=== PATIENT | male | born 1950 | race Caucasian/White ===

== ENCOUNTER 2017-07-30 20:02 | Emergency (ER) | payer OTHER ==
[~2017-07-30] VITALS: Ht 182.9 cm; Wt 95.9 kg
[2017-07-30 20:04] VITALS: TEMP 36.3; Ht 182.9 cm; Wt 95.9 kg
[2017-07-30 20:34] VITALS: O2SAT 93
[2017-07-30] MEDS ORDERED: NITROGLYCERIN 0.4 MG SL PER TAB CHARGE SL STA (20:35)
[2017-07-30 20:36] LABS: BASO % 0.3 %; BASO ABS # 0.02 K/uL (0-0.2); EOS % 1.2 %; EOS ABS # 0.09 K/uL (0-0.5); HEMATOCRIT 42.3 % (42-52); HEMOGLOBIN 15.4 g/dL (14.0-18.0); IG# 0.01 K/uL (0.00-0.02); LYMPH % 13.7 %; LYMPH ABS # 1.04 K/uL (1.2-3.4); MEAN CELL VOLUME 83.1 fL (80-100); MEAN CORPUSCULAR HEMOGLOBIN 30.3 pg (25-34); MEAN CORPUSCULAR HGB CONC 36.4 g/dl (32-36); MEAN PLATELET VOLUME 11.4 fL (7.4-10.4); MONO % 5.7 %; MONO ABS # 0.43 K/uL (0.11-0.59); NEUT ABS # 6.02 K/uL (1.4-6.5); PLATELET COUNT 131 K/uL (130-400); RED CELL DISTRIBUTION WIDTH CV 13.3 % (11.5-14.5); RED CELL DISTRIBUTION WIDTH SD 40.1 fL (36.4-46.3); WHITE BLOOD COUNT 7.61 K/uL (4.8-10.8)
--- NOTE | 2017-07-30 20:36 | DIAGNOSTIC IMAGING REPORT ---
CHEST ONE VIEW PORTABLE HISTORY: 66 years-old Male cp acute atypical chest pain COMPARISON: Chest CT 12/10/2007 TECHNIQUE: Portable AP view of the chest FINDINGS: Cardiomediastinal and hilar silhouettes are within normal limits. Mild right hemidiaphragm elevation with loops of colon interposed between the diaphragm and liver. Subsegmental right basilar opacities suggest atelectasis. There is no pneumothorax, pleural effusion, focal airspace consolidation or overt pulmonary edema. Bones of the chest appear grossly intact. IMPRESSION: No acute process. The above report was generated using voice recognition software. It may contain grammatical, syntax or spelling errors. Electronically signed by: Lukas Chandler M.D. 07/30/2017 8:35 PM Dictated Date/Time: 07/30/2017 8:33 PM
[2017-07-30 20:47] LABS: PTT PATIENT 25.7 SECONDS (21.0-31.0)
[2017-07-30 20:58] LABS: POTASSIUM 2.8 mmol/L (3.5-5.1)
[2017-07-30 21:04] LABS: CALCIUM 9.3 mg/dl (8.5-10.1); CREATININE 1.18 mg/dl (0.60-1.40)
[2017-07-30 21:07] LABS: TOTAL PROTEIN 7.8 gm/dl (6.4-8.2)
[2017-07-30] MEDS ORDERED: POTASSIUM CHLORIDE 10 MEQ TABCR PO STA (21:10)
[2017-07-30] MEDS ORDERED: HYDR12.55 PO (21:30)
[2017-07-30] MEDS ORDERED: SIMV20TA2 PO (21:31)
[2017-07-30] MEDS ORDERED: LOSA1TAB38 PO (21:32)
[2017-07-30 21:53] LABS: ALBUMIN 4.2 gm/dl (3.4-5.0)
[2017-07-30 22:19] VITALS: BP 115/74; PULSE 88; O2SAT 97
--- NOTE | 2017-07-30 22:26 | DIAGNOSTIC IMAGING REPORT ---
ABDOMEN AND PELVIS CT WITHOUT CONTRAST CT DOSE: 661.78 mGy.cm HISTORY: Acute generalized abdominal pain status post colonoscopy. Concern for possible pneumoperitoneum. eval for free air TECHNIQUE: Multiaxial CT images of the abdomen and pelvis were performed without contrast. A dose lowering technique was utilized adhering to the principles of ALARA. COMPARISON STUDY: None. FINDINGS: Minimal subsegmental bibasilar atelectasis. No pneumatosis or pneumoperitoneum status post colonoscopy. Imaged inferior cardiac chambers are unremarkable. Evaluation of the solid abdominal organs is limited without the use of IV contrast. Multiple low attenuating lesions of the liver, largest of which measure up to 1.7 cm suggest hepatic cysts. No intrahepatic biliary ductal dilation. Spleen, pancreas and adrenal glands are within normal limits. Multiple gallstones are seen layering within the gallbladder lumen. Prominence of the gallbladder fundus may reflect adenomyomatosis or Phrygian cap. No CT evidence of acute cholecystitis. There are multiple low attenuating lesions of the kidneys bilaterally suggesting renal cysts, largest of which measures 10.1 x 9.7 cm within the inferior pole right kidney. Indeterminate mixed attenuating lesion measuring 2.1 x 1.9 cm involves the superior pole right kidney, image 166 series 3. Soft tissue attenuating 1.4 cm lesion is seen within the interpolar left kidney. Complex cyst with peripheral calcifications involves the inferior pole left kidney. No renal calculi or obstructive uropathy. Prostamegaly. Small fat filled bilateral inguinal hernias. Mild atherosclerosis of the aorta without aneurysm. No bulky adenopathy. Mild nonspecific stranding of the mid mesentery with scattered nonenlarged mesenteric lymph nodes. No bowel obstruction or focal bowel wall thickening. Normal appendix. Small fat filled periumbilical hernia, diastases 2.3 cm. Bones appear unremarkable. IMPRESSION: 1. No acute intra-abdominal or intrapelvic abnormality identified, specifically no evidence of pneumoperitoneum. 2. Cholelithiasis without CT evidence of acute cholecystitis. 3. Multiple bilateral renal cysts with additional complex lesions of the kidneys bilaterally which are indeterminate on this noncontrast study however would favor complex renal cysts. 4. 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 5. Prostamegaly. Electronically signed by: Lukas Chandler M.D. 07/30/2017 10:25 PM Dictated Date/Time: 07/30/2017 10:16 PM
--- NOTE | 2017-07-31 17:11 | EMERGENCY ROOM VISIT NOTE ---
History Report prepared by Cyndi: Alvaro Valadez Under the Supervision of: Dr. Giovanni Carr M.D. First contact with patient: 20:09 Chief Complaint: CHEST PAIN Stated Complaint: STRONG CHEST PAIN- S/P COLONOSCOPY History of Present Illness The patient is a 66 year old male who presents to the Emergency Room with complaints of constant chest pain that began this evening at 1845, 1 hour and 30 minutes ago. The patient states that his pain is localized to the center of the chest, and describes the pain as a "pressure" or "gas bubble." The pain is worsened by laying flat. He has no personal or family history of cardiac disease , but he is on mediation for hypertension. The patient does have some upper abdominal pain as well, but denies any fevers or vomiting. He had a colonoscopy performed today, which he notes he has frequently due to his father having cancer. Source of History: patient Onset: 90 minutes ago Position: chest Quality: pressure, other ("radha bubble") Timing: constant Modifying Factors (Worsening): other (Laying flat) Associated Symptoms: + abdominal pain, No fevers, No vomiting Review of Systems See HPI for pertinent positives & negatives. A total of 10 systems reviewed and were otherwise negative. Past Medical & Surgical Medical Problems: (1) Hemorrhoids (2) Hypertension Surgical Problems: (1) Hx of transurethral resection of prostate Family History FHx: cancer FHx: heart disease Hypertension Social History Smoking Status: Former Smoker Alcohol Use: none Marital Status: Housing Status: lives with family Occupation Status: employed Current/Historical Medications Scheduled Hydrochlorothiazide (Hydrochlorothiazide), 12.5 MG PO DAILY Losartan Potassium (Cozaar), 100 MG PO DAILY Simvastatin (Zocor), 20 MG PO QPM Allergies Coded Allergies: No Known Allergies (Verified , 07/30/17) Physical Exam Vital Signs Date Time Temp Pulse Resp B/P (MAP) Pulse Ox O2 Delivery O2 Flow Rate FiO2 07/30/17 22:19 88 18 115/74 97 Room Air 07/30/17 20:48 94 07/30/17 20:47 97 18 118/80 93 Room Air 07/30/17 20:39 102 18 145/96 93 Room Air 07/30/17 20:34 93 Room Air 07/30/17 20:04 36.3 87 20 162/95 98 Room Air Physical Exam Constitutional: Vital signs reviewed. Eyes: Pupils are equal round reactive to light. Conjunctiva are noninjected. ENT: Pharynx is clear without erythema or exudate. Mucous membranes are moist. Neck supple without meningeal signs. Respiratory: Clear to auscultation bilaterally. Breath sounds are equal bilaterally. Cardiovascular: Regular rate and rhythm. No rubs or gallops. GI: Epigastric tenderness, Soft, no guarding, nondistended. Bowel sounds are present. Musculoskeletal: No peripheral edema. No lower extremity tenderness. Integumentary: No cyanosis. Neurological: The patient is awake and alert. No focal deficits. Psychiatric: Normal affect. Medical Decision & Procedures ER Provider Diagnostic Interpretation: Radiology results as stated below per my review and the radiologist's interpretation: CHEST ONE VIEW PORTABLE HISTORY: 66 years-old Male cp acute atypical chest pain COMPARISON: Chest CT 12/10/2007 TECHNIQUE: Portable AP view of the chest FINDINGS: Cardiomediastinal and hilar silhouettes are within normal limits. Mild right hemidiaphragm elevation with loops of colon interposed between the diaphragm and liver. Subsegmental right basilar opacities suggest atelectasis. There is no pneumothorax, pleural effusion, focal airspace consolidation or overt pulmonary edema. Bones of the chest appear grossly intact. IMPRESSION: No acute process. The above report was generated using voice recognition software. It may contain grammatical, syntax or spelling errors. Electronically signed by: Lukas Chandler M.D. 07/30/2017 8:35 PM Dictated Date/Time: 07/30/2017 8:33 PM ABDOMEN AND PELVIS CT WITHOUT CONTRAST CT DOSE: 661.78 mGy.cm HISTORY: Acute generalized abdominal pain status post colonoscopy. Concern for possible pneumoperitoneum. eval for free air TECHNIQUE: Multiaxial CT images of the abdomen and pelvis were performed without contrast. A dose lowering technique was utilized adhering to the principles of ALARA. COMPARISON STUDY: None. FINDINGS: Minimal subsegmental bibasilar atelectasis. No pneumatosis or pneumoperitoneum status post colonoscopy. Imaged inferior cardiac chambers are unremarkable. Evaluation of the solid abdominal organs is limited without the use of IV contrast. Multiple low attenuating lesions of the liver, largest of which measure up to 1.7 cm suggest hepatic cysts. No intrahepatic biliary ductal dilation. Spleen, pancreas and adrenal glands are within normal limits. Multiple gallstones are seen layering within the gallbladder lumen. Prominence of the gallbladder fundus may reflect adenomyomatosis or Phrygian cap. No CT evidence of acute cholecystitis. There are multiple low attenuating lesions of the kidneys bilaterally suggesting renal cysts, largest of which measures 10.1 x 9.7 cm within the inferior pole right kidney. Indeterminate mixed attenuating lesion measuring 2.1 x 1.9 cm involves the superior pole right kidney, image 166 series 3. Soft tissue attenuating 1.4 cm lesion is seen within the interpolar left kidney. Complex cyst with peripheral calcifications involves the inferior pole left kidney. No renal calculi or obstructive uropathy. Prostamegaly. Small fat filled bilateral inguinal hernias. Mild atherosclerosis of the aorta without aneurysm. No bulky adenopathy. Mild nonspecific stranding of the mid mesentery with scattered nonenlarged mesenteric lymph nodes. No bowel obstruction or focal bowel wall thickening. Normal appendix. Small fat filled periumbilical hernia, diastases 2.3 cm. Bones appear unremarkable. IMPRESSION: 1. No acute intra-abdominal or intrapelvic abnormality identified, specifically no evidence of pneumoperitoneum. 2. Cholelithiasis without CT evidence of acute cholecystitis. 3. Multiple bilateral renal cysts with additional complex lesions of the kidneys bilaterally which are indeterminate on this noncontrast study however would favor complex renal cysts. 4. 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 5. Prostamegaly. Electronically signed by: Lukas Chandler M.D. 07/30/2017 10:25 PM Dictated Date/Time: 07/30/2017 10:16 PM Laboratory Results 07/30/17 20:25 Red Blood Count 5.09, Mean Corpuscular Volume 83.1, Mean Corpuscular Hemoglobin 30.3, Mean Corpuscular Hemoglobin Concent 36.4, Mean Platelet Volume 11.4, Neutrophils (%) (Auto) 79.0, Lymphocytes (%) (Auto) 13.7, Monocytes (%) (Auto) 5.7, Eosinophils (%) (Auto) 1.2, Basophils (%) (Auto) 0.3, Neutrophils # (Auto) 6.02, Lymphocytes # (Auto) 1.04, Monocytes # (Auto) 0.43, Eosinophils # (Auto) 0.09, Basophils # (Auto) 0.02 07/30/17 20:25 Test 07/30/17 20:25 07/30/17 22:15 White Blood Count 7.61 K/uL (4.8-10.8) Red Blood Count 5.09 M/uL (4.7-6.1) Hemoglobin 15.4 g/dL (14.0-18.0) Hematocrit 42.3 % (42-52) Mean Corpuscular Volume 83.1 fL (80-100) Mean Corpuscular Hemoglobin 30.3 pg (25-34) Mean Corpuscular Hemoglobin Concent 36.4 g/dl (32-36) Platelet Count 131 K/uL (130-400) Mean Platelet Volume 11.4 fL (7.4-10.4) Neutrophils (%) (Auto) 79.0 % Lymphocytes (%) (Auto) 13.7 % Monocytes (%) (Auto) 5.7 % Eosinophils (%) (Auto) 1.2 % Basophils (%) (Auto) 0.3 % Neutrophils # (Auto) 6.02 K/uL (1.4-6.5) Lymphocytes # (Auto) 1.04 K/uL (1.2-3.4) Monocytes # (Auto) 0.43 K/uL (0.11-0.59) Eosinophils # (Auto) 0.09 K/uL (0-0.5) Basophils # (Auto) 0.02 K/uL (0-0.2) RDW Standard Deviation 40.1 fL (36.4-46.3) RDW Coefficient of Variation 13.3 % (11.5-14.5) Immature Granulocyte % (Auto) 0.1 % Immature Granulocyte # (Auto) 0.01 K/uL (0.00-0.02) Prothrombin Time 10.4 SECONDS (9.0-12.0) Prothromb Time International Ratio 1.0 (0.9-1.1) Activated Partial Thromboplast Time 25.7 SECONDS (21.0-31.0) Partial Thromboplastin Ratio 1.0 Anion Gap 7.0 mmol/L (3-11) Est Creatinine Clear Calc Drug Dose 76.0 ml/min Estimated GFR () 75.1 Estimated GFR (Non- 64.8 BUN/Creatinine Ratio 14.7 (10-20) Calcium Level 9.3 mg/dl (8.5-10.1) Total Bilirubin 1.3 mg/dl (0.2-1) Direct Bilirubin 0.3 mg/dl (0-0.2) Aspartate Amino Transf (AST/SGOT) 39 U/L (15-37) Alanine Aminotransferase (ALT/SGPT) 52 U/L (12-78) Alkaline Phosphatase 90 U/L (45-117) Total Protein 7.8 gm/dl (6.4-8.2) Albumin 4.2 gm/dl (3.4-5.0) Lipase 107 U/L (73-393) Bedside Troponin I < 0.030 ng/ml (0-0.045) Laboratory results as reviewed by me. Medications Administered Medications (Trade) Dose Ordered Sig/Owen Route Start Time Stop Time Status Last Admin Dose Admin Nitroglycerin (Nitrostat Tab) 0.4 mg NOW STAT SL 07/30/17 20:35 07/30/17 20:36 DC 07/30/17 20:40 0.4 MG Potassium Chloride (Klor-Con M10) 40 meq NOW STAT PO 07/30/17 21:10 07/30/17 21:11 DC 07/30/17 22:19 40 MEQ ECG Per My Interpretation Indication: chest pain Rate (beats per minute): 78 Rhythm: normal sinus Findings: other (J-Point elevation in V2/V3. No BABAK, No PVCs) Comparison ECG Date: 06/30/2010 Change: no significant change ED Course 2012: The patient was evaluated in room B8. A complete history and physical exam was performed. 2033: I checked on the patient. He states that he "burped" and felt a little better. 2034: Ordered Nitroglycerin 0.4 mg SL. 2109: Ordered Potassium Chloride 40 meq PO. 2116: The patient states that the nitroglycerin did seem to help for a short time, then the pain came right back. 2207: I checked on the patient. He has had complete resolution of his symptoms. He states that he kept rocking back and forth until he kept burping and now he feels much better. He will be discharged home when his CT is resulted. Medical Decision This is a 66-year-old male who presents with chest pain. Differential diagnosis includes gas, reflux, unstable angina, GA, pneumothorax, colonic perforation. I did perform a limited focused review of portions of the patient' s old chart on the electronic medical record. The patient has had no recent pertinent visits to this hospital. I did evaluate the patient as noted above. Patient is presenting with chest pain and upper abdominal pain after having a colonoscopy earlier today. He states the pain does feel like gas but also describes it as a pressure-like sensation. Initially did give him a sublingual nitroglycerin but this did not seem to help very much. He stated that it did help slightly but then the pain came back and it was worse. He then stated that he started belching and the pain seemed to subside. IV access was established. The patient was placed on a continuous supplier diversity director. I did order and personally review the patient's 12-lead EKG and chest x-ray as described above. His chest x-ray did not show any signs of free air under the diaphragm. Twelve-lead EKG did not show any acute ischemia. I did order and review the patient's blood work as noted in the electronic medical record. Troponin 2 is negative. I did reassess the patient. He is still having abdominal and upper chest pain. I was concerned about the possibility of bowel perforation from the colonoscopy. After discussion with the patient I did order a CT of the abdomen and pelvis. I did review the images myself as well as the radiology report as described above. No evidence of free air was noted. I did reassess the patient. He now states that his pain is completely gone. He stated that he started trying a rock himself back in forward and this helped him burp quite a bit and subsequently his chest pain resolved. It appears that his symptoms were secondary to the insufflation of gas into his GI system. The patient was advised to follow-up with his doctor and discharged in good condition. He was told to return for any worsening symptoms or any new symptoms as outlined below. Medication Reconcilliation Current Medication List: was personally reviewed by me Blood Pressure Screening Patient's blood pressure: Elevated blood pressure Impression Primary Impression: Acute chest pain Scribe Attestation The scribe's documentation has been prepared under my direct and personally reviewed by me in its entirety. I confirm that the note above accurately reflects all work, treatment, procedures, and medical decision making performed by me. Departure Information Referrals Tova Nguyen D.O. (PCP) Patient Instructions My [facility]
== END 2017-07-30 20:40 | disposition home or self-care (01) ==
LOC: C.EDB 20:03
DX: R07.9 Chest pain, unspecified (principal); R10.10 Upper abdominal pain, unspecified; I10 Essential (primary) hypertension; Z82.49 Family history of ischemic heart disease and other diseases of the circulatory system; Z87.891 Personal history of nicotine dependence; Z79.899 Other long term (current) drug therapy

== ENCOUNTER 2023-12-03 13:58 | Inpatient (IN) ==
--- NOTE | 2023-12-03 14:32 | Emergency Department Note ---
History of Present Illness General Chief complaint: Abdominal Pain Stated complaint: ABD PAIN, VOMITING Time Seen by Provider: 12/03/23 14:09 History of Present Illness Maximum Pain Intensity: 8 Patient is a 72-year-old male with past medical history significant for hypertension and dyslipidemia who presents to the emergency department for evaluation of upper abdominal pain and nausea and vomiting. He states his symptoms started acutely last evening. Pain started around 1900. He had had a sloppy An[place] for dinner. He states the pain is in his epigastric and bilateral upper abdomen. He started vomiting around 2200. He estimates he is thrown up about 6 times since. He states the pain was fairly constant overnight, although he admits that it seems to have improved since arrival in the emergency department. He last vomited on the drive in, when he tried to sip on some water. He rated his pain an 8/10 in triage. He does note some mild midsternal chest discomfort that is worse when he tries to lay flat. He also feels a little bit short of breath. He had episodes of dizziness, weakness, sweats and chills, mainly associated with his episodes of vomiting. He states that his abdomen feels bloated and distended. He denies any diarrhea. He states that other family members ate the same foods as him recently and are not ill. He has municipal water as a source at home, but states that he uses bottled water exclusively. No foreign travel or other food concerns. Of note, patient is on day 5 of a 10-day course of doxycycline for possible tick bite. He is status post cholecystectomy, and partial right nephrectomy. Home Medications Medication Instructions Recorded Confirmed Type losartan 100 mg tablet (Cozaar) 100 mg PO HS 10/01/19 12/03/23 History amlodipine 5 mg tablet 5 mg PO QAM 12/03/23 12/03/23 History atorvastatin 20 mg tablet 20 mg PO HS 12/03/23 12/03/23 History doxycycline hyclate 100 mg tablet 100 mg PO AMHS 12/03/23 12/03/23 History Allergies Allergy/AdvReac Type Severity Reaction Status Date / Time pollen extracts Allergy Intermediate Congested Verified 12/03/23 19:33 No Known Drug Allergies Allergy Unknown Verified 12/03/23 19:33 Past Med/Surg History Problem List (Updated 12/03/23 @ 19:23 by Kelley Chung) Partial small bowel obstruction (Acute) Medical History 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), 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 Hemorrhoids Hypertension History of kidney cancer Surgical History History of partial nephrectomy History of cholecystectomy Hx of transurethral resection of prostate History of hernia repair H/O hemorrhoidectomy Family History Father Cancer Hypertension Other Allergies Hearing loss No family history of adverse response to anesthesia No family history of bleeding disorder Social History Smoking Status: Never smoker Age Quit Using Tobacco: 26; packs per day: 4; Hx Alcohol Use: No Hx Substance Use: No Preferred Language: Azeri Feels Safe at Home: Yes Review of Systems A total of 10 systems reviewed and were otherwise negative Physical Exam Vital Signs Vital Signs - 24 hr 12/03/23 14:00 12/03/23 14:44 12/03/23 14:45 Temperature 36.5 C Temperature Source Oral Pulse Rate 72 89 Pulse Rate [Apical] 89 Pulse Rate from SpO2 Sensor Respiratory Rate 18 23 Respiratory Effort / Characteristics Non-Labored Spontaneous Non-Labored Respiratory Depth Normal Normal Respiratory Pattern Regular Regular Blood Pressure 153/91 H Blood Pressure [Right Arm] 107/86 Blood Pressure Mean 111 Blood Pressure Mean [Right Arm] 93 Blood Pressure Position Sitting Pulse Oximetry 96 95 Oxygen Delivery Method Room Air Room Air Sepsis Recent Fever Within 48 Hours No Sepsis New/Unexplained Change in Mental Status No Sepsis Action Taken by Nursing No Action Required 12/03/23 17:21 12/03/23 18:00 12/03/23 19:28 Temperature Temperature Source Pulse Rate 124 H 91 H 112 H Pulse Rate [Apical] Pulse Rate from SpO2 Sensor 92 H Respiratory Rate 12 20 Respiratory Effort / Characteristics Respiratory Depth Respiratory Pattern Blood Pressure 146/103 H 131/94 Blood Pressure [Right Arm] Blood Pressure Mean 117 106 Blood Pressure Mean [Right Arm] Blood Pressure Position Pulse Oximetry 93 93 Oxygen Delivery Method Room Air Room Air Sepsis Recent Fever Within 48 Hours Sepsis New/Unexplained Change in Mental Status Sepsis Action Taken by Nursing CONSTITUTIONAL: Well-appearing 72-year-old male in no acute distress laying on the gurney. EYES: Pupils equal, round, reactive to light and accommodation. EOMs intact without nystagmus. Sclera are anicteric. CARDIOVASCULAR: Regular rate and rhythm. Peripheral pulses easy to palpable. RESPIRATORY: Breath sounds equal and clear to auscultation. GI: Bowel sounds are present. Abdomen is soft, mildly distended. Midline ventral hernia noted superior to the umbilicus. Nontender to percussion, but tender to palpation in the left upper quadrant, epigastric, the right upper quadrant and the right lower quadrant. No guarding or rebound. MUSCULOSKELETAL: Full range of motion of extremities x 4 with good strength. No cyanosis, edema, joint tenderness or swelling. No deformity. Course Course The patient was seen and assessed as above. External medical records were reviewed. He presents to the emergency department for evaluation of acute upper abdominal pain, nausea and vomiting that started last evening. IV lock was initiated and laboratory studies were collected. He was hydrated with normal saline solution and treated with Pepcid and Zofran IV. EKG, chest x-ray and CT scan of the abdomen and pelvis were ordered. Patient was later reassessed prior to CT and was complaining of increased pain. He was given morphine 4 mg IV. Diagnostics, as interpreted by me: Laboratory studies: Normal white count 10,400. No anemia. No electrolyte imbalance or LILY. Mildly elevated total bilirubin at 1.8, remainder transaminases are normal. Lipase is not indicative of acute pancreatitis. Troponin is negative x 1 with symptoms times almost 24 hours. Urine microscopy is not concerning for infection. ECG: Sinus rhythm with frequent PVCs, 91 bpm. PVCs are new compared to prior. No acute ischemic changes. No other significant change. Cardiac Monitoring: Cardiac monitoring: An order was placed for continuous cardiac monitoring. The monitor shows a sinus tachycardia in the [id number] per my interpretation. Imaging studies: Chest x-ray clear. No consolidation or infiltrate. CT scan of the abdomen and pelvis with IV contrast concerning for low-grade small bowel obstruction versus ileus, noting dilated small bowel loops of the upper abdomen without distinct transition point. Patient reviewed with attending physician, Dr. Amador. Maintenance fluids ordered at 250 cc/h. Lactic acid was ordered. Patient was reassessed and all laboratory and diagnostic imaging studies were reviewed with him. The patient reported that he declined to the morphine when it was initially ordered, but was amenable to it on reassessment and it was given, although later than the order. Options of care were discussed with the patient that. I will note that at this time, the patient was noted to be persistently tachycardic, with a heart rate in the 110s. Observation/admission was discussed, versus a trial of management at home, but after review of the information above and other included data, I feel the patient would be better served by inpatient care. He was in agreement. Patient was discussed with Dr. Gonzalez with the [facility] service. Please refer to his H&P and admission orders for further information. Differential diagnosis: GERD, gastritis, esophagitis, peptic ulcer disease, acute pancreatitis, mass or malignancy, bowel obstruction, diverticulitis, ACS, aortic dissection, among others. Administered Medications Sodium Chloride (Nss) 1,000 mls @ 250 mls/hr IV .Q4H ANJELICA Stop: 01/02/24 19:29 Last Admin: 12/03/23 19:58 Dose: 250 mls/hr Documented By: CARLENE Discontinued Medications Sodium Chloride (Nss) 1,000 mls @ 999 mls/hr IV .Q1H1M ANJELICA Stop: 12/03/23 15:24 Last Infusion: 12/03/23 19:18 Dose: Infused Documented By: Admin: 12/03/23 14:51 Dose: 999 mls/hr Documented By: JIMBO Famotidine (Pepcid 20mg Iv Push) 20 mg in 5 mls @ 2.5 mls/min IV NOW STA Stop: 12/03/23 14:24 Last Admin: 12/03/23 14:51 Dose: 2.5 mls/min Documented By: JIMBO Ioversol (Optiray 320 100ml) 94 ml IV ONCE ONE Stop: 12/03/23 17:15 Last Admin: 12/03/23 17:15 Dose: 94 ml Documented By: SANDIE Morphine Sulfate (Morphine Sulfate 4 Mg/Ml 1 Ml Carp\Vial) 4 mg IV NOW STA Stop: 12/03/23 16:47 Last Admin: 12/03/23 19:14 Dose: 4 mg Documented By: CARLNEE Morphine Sulfate (Morphine Sulfate 4 Mg/Ml 1 Ml Carp\Vial) Confirm Administered Dose 4 mg .ROUTE .STK-MED ONE Stop: 12/03/23 19:12 Last Admin: 12/03/23 19:12 Dose: Not Given Documented By: CARLENE Ondansetron HCl (Ondansetron Inj 2 Mg/Ml 2 Ml Vial) 4 mg IV NOW STA Stop: 12/03/23 14:24 Last Admin: 12/03/23 14:51 Dose: 4 mg Documented By: JIMBO Medical Decision Making Differential Diagnosis See ED Course. Medical Records Attestation: I reviewed the patient's medical records. Home Medications Current Medication List: was personally reviewed by me Laboratory Data Attestation: I reviewed the patient's lab results. 12/03/23 14:43 12/03/23 14:43 Lab Results 12/03/23 12/03/23 Range/Units 14:43 17:00 WBC 10.41 (4.8-10.8) K/ul RBC 5.77 (4.70-6.10) M/uL Hgb 16.3 (14.0-18.0) g/dl Hct 48.9 (42.0-52.0) % MCV 84.7 (80.0-100.0) fL MCH 28.2 (25.0-34.0) pg MCHC 33.3 (32.0-36.0) g/dL RDW Std Deviation 42.4 (36.4-46.3) fL RDW Coeff of Donita 13.6 (11.5-14.5) % Plt Count 149 (130-400) K/uL MPV 10.5 (9.4-12.4) fL Immature Gran % (Auto) 0.3 % Neut % (Auto) 86.8 % Lymph % (Auto) 6.2 % Dillon % (Auto) 6.0 % Eos % (Auto) 0.4 % Baso % (Auto) 0.3 % Neut # (Auto) 9.04 H (1.40-6.50) K/uL Lymph # (Auto) 0.65 L (1.20-3.40) K/uL Dillon # (Auto) 0.62 H (0.11-0.59) K/uL Eos # (Auto) 0.04 (0.00-0.50) K/uL Baso # (Auto) 0.03 (0.00-0.20) K/uL Immature Gran # (Auto) 0.03 (0.01-0.20) K/uL Sodium 141 (136-145) mmol/L Potassium 3.5 (3.5-5.1) mmol/L Chloride 106 (98-107) mmol/L Carbon Dioxide 26 (21-32) mmol/L Anion Gap 9 (3-11) BUN 22 (6-23) mg/dl Creatinine 1.05 (0.6-1.4) mg/dl Est Cr Clr Drug Dosing 75.9 ml/min Est GFR ( Amer) 83.0 ml/min Est GFR (Non-Af Amer) 71.6 ml/min BUN/Creatinine Ratio 21.0 H (10-20) Glucose 112 H (70-99(Fasting)) mg/dl Calcium 10.0 (8.6-10.3) mg/dl Total Bilirubin 1.8 H (0.2-1.0) mg/dl AST 21 (13-39) U/L ALT 15 (7-52) U/L Alkaline Phosphatase 89 (34-104) U/L Troponin I High Sens 4.6 (0-20) pg/ml Total Protein 7.4 (6.0-8.3) gm/dl Albumin 4.8 (3.4-5.0) gm/dl Globulin 2.6 (2.5-4.0) gm/dl Albumin/Globulin Ratio 1.8 (0.9-2) Lipase 35 (11-82) U/L Urine Color Dark Yellow Urine Appearance Clear (Clear) Urine pH 6.0 (4.5-7.5) Ur Specific [place] 1.024 (1.000-1.030) Urine Protein 1+ H (Negative) Urine Glucose (UA) Negative (Negative) Urine Ketones 1+ H (Negative) Urine Blood Negative (Negative) Urine Nitrite Negative (Negative) Urine Bilirubin Negative (Negative) Urine Urobilinogen Negative (Negative) Ur Leukocyte Esterase Negative (Negative) Urine WBC (Auto) 0-5 (0-5) /hpf Urine RBC (Auto) 0-2 (0-2) /hpf U Hyaline Cast (Auto) 3-5 H (0-2) /lpf U Epithel Cells (Auto) 0-2 (0-2) /hpf Urine Bacteria (Auto) None Seen (None Seen) Urine Mucus Present A (None Prsent) Imaging Data Attestation: I personally reviewed and interpreted this imaging study as follows: Radiologist's Impression: Abdomen/Pelvis CT 12/03/23 14:23 CT abd pelvis IV con only CLINICAL HISTORY: UPPER ABD PAIN, N/V TECHNIQUE: Helical axial images of the abdomen and pelvis were obtained and displayed. Automated dose lowering techniques and/or adjustment according to patient size were utilized for this exam. This exam was performed with intravenous contrast. CT DOSE: 1455.27 mGy.cm COMPARISON: Comparison is made to CT abdomen pelvis 12/09/2022 FINDINGS: Lower chest: Bibasilar atelectasis versus scarring is seen. Liver: Hepatic cysts are seen. Gallbladder and biliary tree: Patient is status post cholecystectomy. No intra- or extrahepatic biliary ductal dilation. Pancreas: Unremarkable, no focal lesions. Spleen: Unremarkable. Adrenals: Unremarkable. Kidneys and ureters: Renal cysts are seen. Postsurgical changes of partial nephrectomy are seen on the right. Bladder: Limited evaluation due to underdistention. Reproductive organs: Unremarkable. Bowel: Diverticulosis is seen without evidence of diverticulitis. Multiple dilated loops of small bowel measure up to 36 m. No sharp transition point is seen. Lymph nodes Retroperitoneal: Unremarkable. Pelvic: Unremarkable. Mesenteric: Unremarkable. Peritoneum: A small amount of abdominal and pelvic fluid is seen. Vessels: Unremarkable. Abdominal wall: Bilateral fat-containing inguinal hernias are seen. Bones: Degenerative changes in the visualized spine. IMPRESSION: 1. Multiple loops of dilated small bowel without sharp transition point. This may represent a low-grade obstruction or ileus. Postsurgical changes of partial nephrectomy of the right kidney. 2. Additional findings as above. ACT 112: Negative or not required by law. Electronically signed by: Sergo Bustos M.D. 12/03/2023 6:36 PM Chest X-Ray 12/03/23 14:23 XR chest 1V portable HISTORY: UPPER ABD PAIN COMPARISON: Chest 07/30/2017. FINDINGS: There are low lung volumes with a few bibasilar linear densities suggesting subsegmental atelectasis. Otherwise, the lungs are clear. No evidence for pulmonary edema. The heart is normal in size. No acute fractures. IMPRESSION: No significant change compared to the prior study. No acute process. ACT 112: Negative or not required by law. Electronically signed by: Kilo Saleem M.D. 12/03/2023 2:40 PM MDM Narrative See ED Course. Impression & Plan Partial small bowel obstruction Discharge Plan Visit Data Chief Complaint: Abdominal Pain Stated Complaint: ABD PAIN, VOMITING ED Provider: Sunday Amador ED Midlevel Provider: Kelley Chung Discharge Problem: Partial small bowel obstruction Patient Disposition: Being Evaluated by Hospitalist Forms Stand Alone Forms: [facility] Prescriptions Prescriptions: No Action losartan [Cozaar] 100 mg tablet 100 mg PO HS atorvastatin 20 mg Tablet 20 mg PO HS amlodipine 5 mg Tablet 5 mg PO QAM doxycycline hyclate 100 mg Tablet 100 mg PO AMHS Referrals Referrals: Tova Nguyen DO [Primary Care Provider] -
--- NOTE | 2023-12-03 14:41 | XRay Report ---
XR chest 1V portable HISTORY: UPPER ABD PAIN COMPARISON: Chest 07/30/2017. FINDINGS: There are low lung volumes with a few bibasilar linear densities suggesting subsegmental at electasis. Otherwise, the lungs are clear. No evidence for pulmonary edema. The heart is normal in si ze. No acute fractures. IMPRESSION: No significant change compared to the prior study. No acute process. ACT 112: Negative or not required by law. Electronically signed by: Kilo Saleem M.D. 12/03/2023 2:40 PM
[2023-12-03] MEDS: ONDANSETRON INJ 2 MG/ML 2 ML VIAL IV STA (14:51)
[2023-12-03] MEDS: FAMOTIDINE 20MG IV PUSH 20 MG/5 ML SYR IV STA (14:51)
[2023-12-03] MEDS: SODIUM CHLORIDE 0.9% 1,000 ML IV SCH ×2 (14:51→19:58)
[2023-12-03 15:04] LABS: Basophils # (auto) 0.03 K/uL (0.00-0.20); Basophils % (auto) 0.3 %; Eosinophils # (auto) 0.04 K/uL (0.00-0.50); Eosinophils % (auto) 0.4 %; Hematocrit (blood only) 48.9 % (42.0-52.0); Hemoglobin 16.3 g/dl (14.0-18.0); Immature Granulocytes # (auto) 0.03 K/uL (0.01-0.20); Immature Granulocytes % (auto) 0.3 %; Lymphocytes # (auto) 0.65 K/uL (1.20-3.40); Lymphocytes % (auto) 6.2 %; Mean Corpuscular Hemoglobin 28.2 pg (25.0-34.0); Mean Corpuscular Hgb Conc 33.3 g/dL (32.0-36.0); Mean Corpuscular Volume 84.7 fL (80.0-100.0); Mean Platelet Volume 10.5 fL (9.4-12.4); Monocytes # (auto) 0.62 K/uL (0.11-0.59); Neutrophils # (auto) 9.04 K/uL (1.40-6.50); Neutrophils % (auto) 86.8 %; Platelet Count 149 K/uL (130-400); RDW Coefficient of Variation 13.6 % (11.5-14.5); RDW Standard Deviation 42.4 fL (36.4-46.3); Red Blood Count 5.77 M/uL (4.70-6.10); White Blood Count 10.41 K/ul (4.8-10.8)
[2023-12-03 15:19] LABS: Albumin Globulin Ratio 1.8 (0.9-2); Albumin Level 4.8 gm/dl (3.4-5.0); Bilirubin,Total 1.8 mg/dl (0.2-1.0); Creatinine Clr Calc Pharmacy 75.9 ml/min; Est GFR (Non-African American) 71.6 ml/min; Globulin 2.6 gm/dl (2.5-4.0); Potassium 3.5 mmol/L (3.5-5.1); Total Protein 7.4 gm/dl (6.0-8.3)
[2023-12-03 15:25] LABS: Troponin I High Sensitivity 4.6 pg/ml (0-20)
--- NOTE | 2023-12-03 15:30 | Electrocardiogram Report ---
Test Reason : Blood Pressure : */* mmHG Vent. Rate : 91 BPM Atrial Rate : 91 BPM P-R Int : 188 ms QRS Dur : 100 ms QT Int : 372 ms P-R-T Axes : 108 15 128 degrees QTcB Int : 457 ms Sinus rhythm with frequent Premature ventricular complexes Low voltage QRS Nonspecific T wave abnormality Abnormal ECG When compared with ECG of 30-Jul-2017 20:08, Premature ventricular complexes are now Present Nonspecific T wave abnormality now evident in Lateral leads Confirmed by Jose Cartwright ([id number]) on 12/03/2023 3:30:32 PM Referred By: REFERRED SELF Confirmed By: Jose Cartwright
[2023-12-03] MEDS: OPTIRAY 320 100ml IV ONE (17:15)
--- NOTE | 2023-12-03 17:35 | Emergency Department Note ---
ED Visit Note I was consulted in regards to the patient's presentation and plan of care by the Advanced Practice Provider. I engaged in a detailed/meaningful discussion with the Advanced Practice Provider in regards to this patient's workup and plan of care. I performed a substantiative portion of the medical decision making following discussion with the Advanced Practice Provider. Please see the Advanced Practice Provider's separate documentation for full details of the patient's visit. I agree with the assessment and plan of Vicki Chung PA-C. Sunday Amador, DO Emergency Medicine .
[2023-12-03 17:47] LABS: Appearance Urine Clear (Clear); Bacteria Urine Automated None Seen (None Seen); Bilirubin Urine Negative (Negative); Blood Urine Negative (Negative); Color Urine Dark Yellow; Epithelial Cell Urine Auto 0-2 /hpf (0-2); Glucose Urine UA Negative (Negative); Ketones Urine 1+ (Negative); Leukocyte Esterase Urine Negative (Negative); Mucus Urine Present (None Prsent); Nitrite Urine Negative (Negative); Protein Urine 1+ (Negative); RBC Urine Automated 0-2 /hpf (0-2); Specific Gravity Urine 1.024 (1.000-1.030); Urobilinogen Urine Negative (Negative); WBC Urine Automated 0-5 /hpf (0-5)
[2023-12-03] MEDS: MoRPHine SULFATE 4 MG/ML 1 ML CARP\\VIAL IV STA (17:52)
--- NOTE | 2023-12-03 18:38 | CT Scan Report ---
CT abd pelvis IV con only CLINICAL HISTORY: UPPER ABD PAIN, N/V TECHNIQUE: Helical axial images of the abdomen and pelvis were obtained and displayed. Automated dose lowering techniques and/or adjustment according to patient size were utilized for this exam. This e xam was performed with intravenous contrast. CT DOSE: 1455.27 mGy.cm COMPARISON: Comparison is made to CT abdomen pelvis 12/09/2022 FINDINGS: Lower chest: Bibasilar atelectasis versus scarring is seen. Liver: Hepatic cysts are seen. Gallbladder and biliary tree: Patient is status post cholecystectomy. No intra- or extrahepatic bilia ry ductal dilation. Pancreas: Unremarkable, no focal lesions. Spleen: Unremarkable. Adrenals: Unremarkable. Kidneys and ureters: Renal cysts are seen. Postsurgical changes of partial nephrectomy are seen on th e right. Bladder: Limited evaluation due to underdistention. Reproductive organs: Unremarkable. Bowel: Diverticulosis is seen without evidence of diverticulitis. Multiple dilated loops of small bow el measure up to 36 m. No sharp transition point is seen. Lymph nodes Retroperitoneal: Unremarkable. Pelvic: Unremarkable. Mesenteric: Unremarkable. Peritoneum: A small amount of abdominal and pelvic fluid is seen. Vessels: Unremarkable. Abdominal wall: Bilateral fat-containing inguinal hernias are seen. Bones: Degenerative changes in the visualized spine. IMPRESSION: 1. Multiple loops of dilated small bowel without sharp transition point. This may represent a low-gr debra obstruction or ileus. Postsurgical changes of partial nephrectomy of the right kidney. 2. Additional findings as above. ACT 112: Negative or not required by law. Electronically signed by: Sergo Bustos M.D. 12/03/2023 6:36 PM
[2023-12-03] MEDS: MoRPHine SULFATE 4 MG/ML 1 ML CARP\\VIAL ONE (19:12)
--- NOTE | 2023-12-03 21:25 | History & Physical Report ---
Date of Service December 03, 2023 Assessment & Plan (1) Partial small bowel obstruction: Plan: 72-year-old male with past medical history significant for hyperlipidemia, hypertension, right renal cell carcinoma status post partial nephrectomy, history of prostate cancer, BPH, Peyronie's disease, anxiety presents with abdominal pain and found to have small bowel obstruction. Patient states since 7 PM last night he has abdominal pain. Pain located in upper abdomen radiating to the left lower quadrant. Whole last night he had pain but since morning the pain is coming and going. Pain is severe in nature. Associated with nausea and several emesis. No blood in the vomiting. Last bowel movement was today morning. Denies any headache. Has chronic runny nose. No sore throat. No cough. No difficulty swallowing. Complains of dry mouth. Currently resting comfortably and hemodynamically stable.Recently had a tick bite and on doxycycline. Partial small bowel obstruction Presented with abdominal pain CT scan showing low-grade obstruction or ileus No history of bowel obstruction in the past N.p.o., IV fluids, IV pain meds as needed IV antiemetics as needed If worsening will place him on NG tube KUB in a.m. Surgery consult in a.m. for further recommendations History of hypertension On amlodipine and losartan Will monitor Hyperlipidemia On statin History of BPH Status post TURP History of prostate cancer Diagnosed during TURP Currently under active surveillance History of right renal cell carcinoma Status post partial nephrectomy Recent tick bite Doxycycline DVT prophylaxis Lovenox Disposition Medical floor Full code. History of Present Illness Chief Complaint: Small bowel obstruction Primary Care Provider: Tova Nguyen DO 72-year-old male with past medical history significant for hyperlipidemia, hypertension, right renal cell carcinoma status post partial nephrectomy, history of prostate cancer, BPH, Peyronie's disease, anxiety presents with abdominal pain and found to have small bowel obstruction. Patient states since 7 PM last night he has abdominal pain. Pain located in upper abdomen radiating to the left lower quadrant. Whole last night he had pain but since morning the pain is coming and going. Pain is severe in nature. Associated with nausea and several emesis. No blood in the vomiting. Last bowel movement was today morning. Denies any headache. Has chronic runny nose. No sore throat. No cough. No difficulty swallowing. Complains of dry mouth. Currently resting comfortably and hemodynamically stable.Recently had a tick bite and on doxycycline. Past medical history. As mentioned above Past surgical history. Colonoscopy. Excision of the subcutaneous tumor in the back cystoscopy. Laparoscopic cholecystectomy. Right partial nephrectomy. Removal of hydrocele. TURP. Tonsillectomy. Repair of inguinal hernia. Umbi lical hernia repair. Social history. . Quit smoking 1975. Smoked 3 packs a day for 7 years. No alcohol use. No drug use. Family history. Father had colon cancer age 74. Mother had bone cancer of leg. Brother has thyroid disorder. Allergies Allergy/AdvReac Type Severity Reaction Status Date / Time pollen extracts Allergy Intermediate Congested Verified 12/03/23 19:33 No Known Drug Allergies Allergy Unknown Verified 12/03/23 19:33 Home Medications Medication Instructions Recorded Confirmed Type losartan 100 mg tablet (Cozaar) 100 mg PO HS 10/01/19 12/03/23 History amlodipine 5 mg tablet 5 mg PO QAM 12/03/23 12/03/23 History atorvastatin 20 mg tablet 20 mg PO HS 12/03/23 12/03/23 History doxycycline hyclate 100 mg tablet 100 mg PO AMHS 12/03/23 12/03/23 History Past Med/Surg History Problem List Partial small bowel obstruction (Acute) Medical History 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), 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 Hemorrhoids Hypertension History of kidney cancer Surgical History History of partial nephrectomy History of cholecystectomy Hx of transurethral resection of prostate History of hernia repair H/O hemorrhoidectomy Family History Father Cancer Hypertension Other Allergies Hearing loss No family history of adverse response to anesthesia No family history of bleeding disorder Social History Smoking Status: Former smoker Age Quit Using Tobacco: 26; packs per day: 4; Hx Alcohol Use: No Hx Substance Use: No Preferred Language: Swedish Communication Ability: Effective Insurance Attorney Required: No Beliefs That Will Affect Care: None Current Living Situation: Spouse Feels Safe at Home: Yes Safety Concerns: Feels Safe At This Time Assistive Devices: Glasses Review of Systems Review of Systems: All systems reviewed & are unremarkable except as noted in HPI & below Physical Exam Physical Exam: General- Not in distress. Head- atraumatic Eyes- PERRL. ENT- oropharynx clear Neck- supple, no JVD. Lungs- clear to auscultation no wheezing or crackles Heart- regular rate and rhythm; no murmur, no gallop. Abdomen- very sluggish l bowel sounds, soft, diffuse discomfort, no distension. Extremities- no pretibial edema, no erythema seen Neuro- alert, oriented PERRL, EOMI; no facial palsy; no dysarthria; moves extremities Results & Data Results & Data Vital Signs (Past 12 Hours) Vital Signs Temp Pulse Pulse Resp BP BP Pulse Ox 12/03/23 19:28 112 H 12/03/23 18:00 91 H 20 131/94 93 12/03/23 17:21 124 H 12 146/103 H 93 12/03/23 14:45 89 23 107/86 95 12/03/23 14:44 89 12/03/23 14:00 36.5 C 72 18 153/91 H 96 O2 Del Method 12/03/23 19:28 12/03/23 18:00 Room Air 12/03/23 17:21 Room Air 12/03/23 14:45 Room Air 12/03/23 14:44 12/03/23 14:00 Room Air Diagnostic Findings Laboratory Results WBC 10.41 K/ul (4.8-10.8) 12/03/23 14:43 RBC 5.77 M/uL (4.70-6.10) 12/03/23 14:43 Hgb 16.3 g/dl (14.0-18.0) 12/03/23 14:43 Hct 48.9 % (42.0-52.0) 12/03/23 14:43 MCV 84.7 fL (80.0-100.0) 12/03/23 14:43 MCH 28.2 pg (25.0-34.0) 12/03/23 14:43 MCHC 33.3 g/dL (32.0-36.0) 12/03/23 14:43 RDW Std Deviation 42.4 fL (36.4-46.3) 12/03/23 14:43 RDW Coeff of Donita 13.6 % (11.5-14.5) 12/03/23 14:43 Plt Count 149 K/uL (130-400) 12/03/23 14:43 MPV 10.5 fL (9.4-12.4) 12/03/23 14:43 Immature Gran % (Auto) 0.3 % 12/03/23 14:43 Neut % (Auto) 86.8 % 12/03/23 14:43 Lymph % (Auto) 6.2 % 12/03/23 14:43 [place] % (Auto) 6.0 % 12/03/23 14:43 Eos % (Auto) 0.4 % 12/03/23 14:43 Baso % (Auto) 0.3 % 12/03/23 14:43 Neut # (Auto) 9.04 K/uL (1.40-6.50) H 12/03/23 14:43 Lymph # (Auto) 0.65 K/uL (1.20-3.40) L 12/03/23 14:43 [place] # (Auto) 0.62 K/uL (0.11-0.59) H 12/03/23 14:43 Eos # (Auto) 0.04 K/uL (0.00-0.50) 12/03/23 14:43 Baso # (Auto) 0.03 K/uL (0.00-0.20) 12/03/23 14:43 Immature Gran # (Auto) 0.03 K/uL (0.01-0.20) 12/03/23 14:43 Sodium 141 mmol/L (136-145) 12/03/23 14:43 Potassium 3.5 mmol/L (3.5-5.1) 12/03/23 14:43 Chloride 106 mmol/L (98-107) 12/03/23 14:43 Carbon Dioxide 26 mmol/L (21-32) 12/03/23 14:43 Anion Gap 9 (3-11) 12/03/23 14:43 BUN 22 mg/dl (6-23) 12/03/23 14:43 Creatinine 1.05 mg/dl (0.6-1.4) 12/03/23 14:43 Est Cr Clr Drug Dosing 75.9 ml/min 12/03/23 14:43 Est GFR ( Amer) 83.0 ml/min 12/03/23 14:43 Est GFR (Non-Af Amer) 71.6 ml/min 12/03/23 14:43 BUN/Creatinine Ratio 21.0 (10-20) H 12/03/23 14:43 Glucose 112 mg/dl (70-99(Fasting)) H 12/03/23 14:43 Lactate 0.9 mmol/L (0.4-2.0) 12/03/23 20:21 Calcium 10.0 mg/dl (8.6-10.3) 12/03/23 14:43 Total Bilirubin 1.8 mg/dl (0.2-1.0) H 12/03/23 14:43 AST 21 U/L (13-39) 12/03/23 14:43 ALT 15 U/L (7-52) 12/03/23 14:43 Alkaline Phosphatase 89 U/L (34-104) 12/03/23 14:43 Troponin I High Sens 4.6 pg/ml (0-20) 12/03/23 14:43 Total Protein 7.4 gm/dl (6.0-8.3) 12/03/23 14:43 Albumin 4.8 gm/dl (3.4-5.0) 12/03/23 14:43 Globulin 2.6 gm/dl (2.5-4.0) 12/03/23 14:43 Albumin/Globulin Ratio 1.8 (0.9-2) 12/03/23 14:43 Lipase 35 U/L (11-82) 12/03/23 14:43 Urine Color Dark Yellow 12/03/23 17:00 Urine Appearance Clear (Clear) 12/03/23 17:00 Urine pH 6.0 (4.5-7.5) 12/03/23 17:00 Ur Specific [place] 1.024 (1.000-1.030) 12/03/23 17:00 Urine Protein 1+ (Negative) H 12/03/23 17:00 Urine Glucose (UA) Negative (Negative) 12/03/23 17:00 Urine Ketones 1+ (Negative) H 12/03/23 17:00 Urine Blood Negative (Negative) 12/03/23 17:00 Urine Nitrite Negative (Negative) 12/03/23 17:00 Urine Bilirubin Negative (Negative) 12/03/23 17:00 Urine Urobilinogen Negative (Negative) 12/03/23 17:00 Ur Leukocyte Esterase Negative (Negative) 12/03/23 17:00 Urine WBC (Auto) 0-5 /hpf (0-5) 12/03/23 17:00 Urine RBC (Auto) 0-2 /hpf (0-2) 12/03/23 17:00 U Hyaline Cast (Auto) 3-5 /lpf (0-2) H 12/03/23 17:00 U Epithel Cells (Auto) 0-2 /hpf (0-2) 12/03/23 17:00 Urine Bacteria (Auto) None Seen (None Seen) 12/03/23 17:00 Urine Mucus Present (None Prsent) A 12/03/23 17:00 Impressions Abdomen/Pelvis CT 12/03/23 14:23 CT abd pelvis IV con only CLINICAL HISTORY: UPPER ABD PAIN, N/V TECHNIQUE: Helical axial images of the abdomen and pelvis were obtained and displayed. Automated dose lowering techniques and/or adjustment according to patient size were utilized for this exam. This exam was performed with intravenous contrast. CT DOSE: 1455.27 mGy.cm COMPARISON: Comparison is made to CT abdomen pelvis 12/09/2022 FINDINGS: Lower chest: Bibasilar atelectasis versus scarring is seen. Liver: Hepatic cysts are seen. Gallbladder and biliary tree: Patient is status post cholecystectomy. No intra- or extrahepatic biliary ductal dilation. Pancreas: Unremarkable, no focal lesions. Spleen: Unremarkable. Adrenals: Unremarkable. Kidneys and ureters: Renal cysts are seen. Postsurgical changes of partial nephrectomy are seen on the right. Bladder: Limited evaluation due to underdistention. Reproductive organs: Unremarkable. Bowel: Diverticulosis is seen without evidence of diverticulitis. Multiple dilated loops of small bowel measure up to 36 m. No sharp transition point is seen. Lymph nodes Retroperitoneal: Unremarkable. Pelvic: Unremarkable. Mesenteric: Unremarkable. Peritoneum: A small amount of abdominal and pelvic fluid is seen. Vessels: Unremarkable. Abdominal wall: Bilateral fat-containing inguinal hernias are seen. Bones: Degenerative changes in the visualized spine. IMPRESSION: 1. Multiple loops of dilated small bowel without sharp transition point. This may represent a low-grade obstruction or ileus. Postsurgical changes of partial nephrectomy of the right kidney. 2. Additional findings as above. ACT 112: Negative or not required by law. Electronically signed by: Sergo Bustos M.D. 12/03/2023 6:36 PM Chest X-Ray 12/03/23 14:23 XR chest 1V portable HISTORY: UPPER ABD PAIN COMPARISON: Chest 07/30/2017. FINDINGS: There are low lung volumes with a few bibasilar linear densities suggesting subsegmental atelectasis. Otherwise, the lungs are clear. No evidence for pulmonary edema. The heart is normal in size. No acute fractures. IMPRESSION: No significant change compared to the prior study. No acute process. ACT 112: Negative or not required by law. Electronically signed by: Kilo Saleem M.D. 12/03/2023 2:40 PM ECG Additional Comments: ECG. Sinus rhythm with frequent PVCs rate of 91. Nonspecific T wave abnormalities. Code Status & VTE Plan VTE Prophylaxis Plan VTE Prophylaxis will be ordered: Yes
--- OUTSIDE RECORDS SUMMARY | 2023-12-03 22:24 | External Medical Summary | Summary of Care ---
Author Name Unknown Organization [facility] Address [address] [place] [address] Phone [phone] Care Team Providers Care Parts Room Associate Name Role Phone Brandon Hernández DO Primary Care Provider [phone] Reason for Visit * Reason Onset Date Comments Medication Refill 10/07/2023 Encounter Details Date Type Department Care Team (Late st Contact Info) Description 10/07/2023 Refill Family Medicine [address] [phone] Brandon Hernández [address] [place] [phone] Essential hypertension with goal blood pressure less than 140/90 Allergies Active Allergy Reactions Criticality Noted Date Comments Pollen 11/04/2001 documented as of this encounter (statuses as of 10/07/2023) Medications Medication Sig Dispensed Refills Start Date End Date Status Acetaminophen 500 MG Oral Tablet Take 1 Tablet by mouth every 6 hours as needed for Pain. Active Vitamin D3 25 MCG (1000 UT) Oral Capsule Take by mouth daily. Active B-12 50 MCG Oral Tablet Take by mouth. Active Atorvastatin Calcium 20 MG Oral Tablet (Lipitor)Indication s:Hyperlipidemia with target LDL less than 100 Take 1 Tablet by mouth every night at bedtime. 90 Tablet 3 06/03/2023 Active Losartan Potassium 100 MG Oral Tablet (Cozaar)Indications :Essential hypertension with goal blood pressure less than 140/90 Take 1 Tablet by mouth in the morning. 90 Tablet 3 06/03/2023 Active amLODIPine Besylate 5 MG Oral Tablet (Norvasc)Indication s:Essential hypertension with goal blood pressure less than 140/90 Take 1 Tablet by mouth in the morning. 90 Tablet 3 10/07/2023 Active amLODIPine Besylate 5 MG Oral Tablet (Norvasc)Indication s:Essential hypertension with goal blood pressure less than 140/90 Take 1 Tablet by mouth in the morning. 90 Tablet 1 04/26/2023 10/07/2023 Discontinued (Refill) documented as of this encounter (statuses as of 10/07/2023) Active Problems Problem Noted Date Diagnosed Date Anxiety 10/12/2022 Malignant neoplasm of right kidney 05/04/2022 Peyronie's disease 05/04/2022 Immunization not carried out because of patient decision 07/18/2021 Lipoma of back 04/04/2021 History of renal cell cancer 02/07/2021 Hyperlipidemia with target LDL less than 100 H/O partial nephrectomy 08/06/2018 Overview: Right Renal cell carcinoma of right kidney 08/06/2018 S/P laparoscopic cholecystectomy 08/06/2018 Prostate cancer 08/06/2018 BPH with obstruction/lower urinary tract symptom s 04/24/2018 Bilateral renal masses 03/12/2016 History of colonic polyps 12/29/2015 Renal cyst 12/29/2015 Weak urinary stream 12/29/2015 Essential hypertension with goal blood pressure less than 140/90 08/10/2011 Family history of GI malignancy 03/25/2007 Disorder of intervertebral disc Overview: Lumbar documented as of this encounter (statuses as of 10/07/2023) Resolved Problems Problem Noted Date Diagnosed Date Resolved Date Hematuria, gross 04/24/2018 07/08/2020 Renal mass, right 12/29/2015 08/24/2018 Generalized anxiety disorder 08/18/2010 12/29/2015 Dyslipidemia, goal to be determined 03/29/2009 08/10/2011 Overview: Per Lipid Taxonomy. Chronic prostatitis 05/19/2007 07/30/19 20 ABN LIVER FUNCTION STUDY 03/25/200709/2015 Gastritis and gastroduodenitis 03/21/2007 07/08/2020 Feces contents abnormal 03/21/20070 11/2015 IRON DEFIC ANEMIA NOS 03/20/20072015 Swelling, mass, or lump in chest 03/20/2007 02/21/2016 Overview: Lipoma on back Benign neoplasm of colon 06/17/200606/2018 Overview: REPEAT COLONOSCOPY IN 5 YEARS Other specified adjustment reaction 10/31/2005 12/29/2015 Pruritic disorder 11/24/2002 12/29/2015 Elevated prostate specific antigen (PSA) 07/22/2002 07/30/2019 Mixed dyslipidemia 11/15/2000 9 Overview: Per Lipid Taxonomy. Other allergic rhinitis 11/2015 Overview: ICD-10 update of inactive term BENIGN NEOPLASM LG BOWEL 11/2015 documented as of this encounter (statuses as of 10/07/2023) Immunizations Name Administration Dates Next Due Pneumococcal Polysaccharide PPV23 (Pneumovax) TDAP, Age 7 and older, IM (Adacel) 09/26/2007 Varicella Zoster Vaccine (Adult) 03/26/2017 documented as of this encounter Social History Tobacco Use Types Packs/Day Years Used Date Smoking Tobacco: Former Cigarettes 3 7 0 04/22/1968 - 04/22/1975 Smokeless Tobacco: Former Quit: 04/22/1975 Alcohol Use Standard Drinks/Week Comments No 0 (1 standard drink = 0.6 oz pur e alcohol) PHQ-2 Answer Date Recorded PHQ Adult Total Score 2 07/17/2021 Hunger Vital Sign Answer Date Recorded Within the past 12 months, y ou worried that your food would run out before you got the money to buy more. Never true 07/09/19 21 Within the past 12 months, t he food you bought just didn't last and you didn't have money to get more. Never true 07/08/2020 Sex and Gender Information Value Date Recorded Sex Assigned at Male 07/09/2018 3:35 PM EDT Gender Identity Male 07/09/2018 3:35 PM EDT Sexual Orientation Straight 07/09/2018 3: 35 PM EDT Job Start Date Occupation Industry Not on file Not on file Not on file documented as of this encounter Functional Status Functional Status Response Date of Assess ment Are you deaf or do you have serious difficulty h earing? No 07/29/2018 Are you blind or do you have serious difficulty seeing, even when wearing glasses? No 07/29/2018 Do you have serious difficul ty walking or climbing stairs? (5 years old or older) No 07/29/2018 Do you have difficulty dress ing or bathing? (5 years old or older) No 07/29/2018 Because of a physical, menta l, or emotional condition, do you have difficulty doing errands alone such as visiting a doctor s office or shopping? (15 years old or older) No 07/30/19 19 Cognitive Status Response Date of Assessm ent Because of a physical, menta l, or emotional condition, do you have serious difficulty concentrating, remembering, or making decisions? (5 years old or older) No 07/29/2018 documented as of this encounter Miscellaneous Notes * Telephone Encounter - Brandon Hernández DO - 10/07/2023 9:16 PM EDTSigned Prescriptions: Disp Refills amLODIPine Besylate 5 MG Oral Tablet (Norv*90 Tab*3 Sig: Take 1 Tablet by mouth in the morning. Authorizing Provider: BRANDON HERNÁNDEZ * Telephone Encounter - Valorie Martinez RN - 10/07/2023 3:41 PM EDTPending Prescriptions: Disp Refills amLODIPine Besylate 5 MG Oral Tablet (Norv*90 Tab*3 Sig: Take 1 Tablet by mouth in the morning. * Telephone Encounter - Birgit Garsia OSA - 10/07/2023 1:00 PM EDT Did you pend patient's preferred pharmacy and medication before forwarding?yes Pharmacy: [facility] [id number] Pending Prescriptions: Disp Refills amLODIPine Besylate 5 MG Oral Tablet (Nor*90 Tab*1 Sig: Take 1 Tablet by mouth in the morning. Last Visit: 05/14/2023 (in office), Visit date not found (telemedicine) Next Visit: 04/28/2024 If no future appointments scheduled, and last appointment is greater than a year ago, please schedule patient for a follow-up appointment Last date the medication was ordered: 1524 Is this request for a controlled substance?No Urine Drug Screen:No results found for this or any previous visit. Patient Phone Numbers Labs: Lab Results Component Value Date/Time CREAT 1.1 04/24/2023 03:36 PM CREAT 1.1 02/19/2020 01:55 PM POTASSIUM 3.7 04/24/2023 03:36 PM POTASSIUM 4.0 03/05/2019 12:33 PM TSH 1.67 09/14/2020 02:07 PM TSH 2.60 01/03/2012 10:55 AM LDLCALC 116 04/24/2023 03:36 PM LDLCALC UNINTERPRETABLE RESULT 08/07/2018 08:48 AM LDLDIRECT 96 08/07/2018 08:48 AM ALT 22 04/24/2023 03:36 PM ALT 36 03/05/2019 12:33 PM documented in this encounter Plan of Treatment Upcoming Encounters Date Type Department Care Team ([facility] st Contact Info) Description 04/20/2024 2:45 PM EST Imaging Radiology [address] [place] [phone] 04/28/2024 3:10 PM EST Office Visit Family Medicine [address] [place] [phone] Brandon Hernández[address] [place] [phone] 05/06/2024 3:15 PM EST Office Visit Urology, [facility] [address] [place] [phone] Ryan Del Rio MD [address] [facility] [place] [place] [id number] Scheduled Procedures Name Priority Associated Diagnoses Date/Ti me COLONOSCOPY FLEXIBLE PROXIMA L DIAGNOSTIC Recall History of colonic polyps Health Maintenance Due Date Last Done Comments Cologuard 1997 Fecal Occult Blood Test 1997 Sigmoidoscopy 1997 Zoster Vaccines (2 of 3) 05/21/2017 03/26/2017 DTaP,Tdap,and Td Vaccines (2 - Td or Tdap) 09/25/2017 09/26/2007 Pneumococcal Vaccine: 65+ Years (2 of 2 - PCV) 02/07/2022 02/07/2021 Depression Screening 07/17/2022 07/17/2021 COVID-19 Vaccine ( - 2022- season) 2022 Influenza Vaccine (FLU shot) (Season Ended) 2023 GFR 04/24/2024 04/24/2023, 09/20, 05/04/2022, Additional history exists Albumin/Creatinine Ratio 03/23/2025 03/23/2022 Colonoscopy 02/26/2028 02/25/2023, 09/2022, 07/30/2017, Additional history exists Colorectal Cancer Screening 02/26/2028 Lipid Panel 04/24/2028 04/24/2023, 05/2021, 06/03/2020, Additional history exists AAA Screening Completed 06/04/2022, 12/23/2007 RETIRED - COLONOSCOPY-EVERY 5 YRS AGES 18-100 Discontinued 02/25/2023, 02/25/2023, 07/30/2017, Additional history exists GARDASIL-HPV IMMUNIZATION SERIES Aged Out No longer eligible based on patient's age to complete this topic Hepatitis B Aged Out No longer eligi ble based on patient's age to complete this topic MENINGOCOCCAL (MENACTRA/MENVEO) Aged Out No longer eligible based on patient's age to complete this topic documented as of this encounter Medical Devices Not on filedocumented as of this encounter Visit Diagnoses Diagnosis Essential hypertension with goal blood pressure less than 140/90 documented in this encounter Advance Directives * Full Code (Latest Code Status on File) Date Activated Date Inactivated Comments 07/29/2018 6:53 PM 07/31/2018 5:48 PM Question Answer Comments Discussion of Advance Directives occurred with: Not Discussed Care Teams Parts Room Associate Relationship Specialty Start Date End Date Brandon Hernández DO [address] [place] [address] [place] [phone] PCP - General Internal Medicine 12/29/15 documented as of this encounter
--- OUTSIDE RECORDS SUMMARY | 2023-12-03 22:24 | External Medical Summary | Summary of Care ---
Author Name Unknown Organization [facility] Address [address] [place] [address] Phone [phone] Care Team Providers Care Channel Manager Name Role Phone Tova Nguyen Primary Care Provider [phone] Reason for Visit * Reason Comments Acute Encounter Details Date Type Department Care Team (Late st Contact Info) Description 11/25/2023 3:20 PM EDT Office Visit Family Medicine [address] [phone] Rebekah Briggs [address] [place] [address] Erythema migrans (Lyme disease)* Allergies Active Allergy Reactions Criticality Noted Date Comments Pollen 11/04/2001 documented as of this encounter (statuses as of 11/26/2023) Medications Medication Sig Dispensed Refills Start Date End Date Status Acetaminophen 500 MG Oral Tablet Take 1 Tablet by mouth every 6 hours as needed for Pain. Active Vitamin D3 25 MCG (1000 UT) Oral Capsule Take by mouth daily. Active B-12 50 MCG Oral Tablet Take by mouth. Active Atorvastatin Calcium 20 MG Oral Tablet (Lipitor)Indications :Hyperlipidemia with target LDL less than 100 Take 1 Tablet by mouth every night at bedtime. 90 Tablet 3 06/03/2023 Active Losartan Potassium 100 MG Oral Tablet (Cozaar)Indications: Essential hypertension with goal blood pressure less than 140/90 Take 1 Tablet by mouth in the morning. 90 Tablet 3 06/03/2023 Active amLODIPine Besylate 5 MG Oral Tablet (Norvasc)Indications :Essential hypertension with goal blood pressure less than 140/90 Take 1 Tablet by mouth in the morning. 90 Tablet 3 10/07/2023 Active Doxycycline Hyclate 100 MG Oral CapsuleIndications:E rythema migrans (Lyme disease) Take 1 Capsule by mouth in the morning and 1 Capsule before bedtime. Do all this for 10 days. 20 Capsule 11/25/2023 12/05/2023 Active documented as of this encounter (statuses as of 11/26/2023) Active Problems Problem Noted Date Diagnosed Date [...] as of this encounter (statuses as of 11/26/2023) Resolved Problems Problem Noted Date Diagnosed Date Resolved Date Hematuria, gross 04/24/2018 07/08/2020 Renal mass, right 12/29/2015 08/24/2018 Generalized anxiety disorder 08/18/2010 12/29/2015 Dyslipidemia, goal to be determined 03/29/2009 08/10/2011 Overview: Per Lipid Taxonomy. Chronic prostatitis 05/19/2007 07/30/19 20 ABN LIVER FUNCTION STUDY 03/25/200709/2015 Gastritis and gastroduodenitis 03/21/2007 07/08/2020 Feces contents abnormal 03/21/200711/2015 IRON DEFIC ANEMIA NOS 03/20/20072015 Swelling, mass, [...] as of this encounter (statuses as of 11/26/2023) Immunizations Name Administration Dates Next Due Pneumococcal Polysaccharide PPV23 (Pneumovax) TDAP, Age 7 and older, IM (Adacel) 09/26/2007 Varicella Zoster Vaccine (Adult) 03/26/2017 documented as of this encounter Social History Tobacco Use Types Packs/Day Years Used Date Smoking Tobacco: Former Cigarettes 3 7 0 04/22/1968 - 04/22/1975 Smokeless Tobacco: Former Quit: 04/22/1975 Tobacco Cessation:Counseling Given: Not Answered Alcohol Use Standard Drinks/Week Comments No 0 [...] on file documented as of this encounter Last Filed Vital Signs Vital Sign Reading Time Taken Comments Blood Pressure 122/70 11/25/2023 3:25 PM EDT Pulse 83 11/25/2023 3:25 PM EDT Temperature 36 C (96.8 F) 11/25/2023 3:25 PM EDT Respiratory Rate 16 11/25/2023 3:25 PM EDT Oxygen Saturation 95% 11/25/2023 3:25 PM EDT Inhaled Oxygen Concentration - - Weight 93.1 kg (205 lb 3 oz) 11/25/2023 3:25 PM EDT Height - - Body Mass Index 28.62 02/22/2023 10:32 AM EDT documented in this encounter Functional Status Functional Status Response [...] No 07/29/2018 documented as of this encounter Nursing Notes * Luna Servin LPN - 11/25/2023 3:22 PM EDT Bug bite left lower leg since last Saturday. documented in this encounter Plan of Treatment Upcoming Encounters Date Type Department Care Team (Late st Contact Info) Description 04/20/2024 2:45 PM EST Imaging Radiology [address] [place] [address] 04/28/2024 3:10 PM EST Office Visit Family Medicine [address] [place] [phone] [place] [address] 05/06/2024 3:15 PM EST Office Visit Urology, [facility] [place] [address] Ryan Del Rio MD [address] [place] [address] Scheduled Procedures Name Priority Associated Diagnoses Date/Ti me COLONOSCOPY FLEXIBLE PROXIMA L DIAGNOSTIC Recall History of colonic polyps Health Maintenance Due Date Last Done Comments Cologuard 1997 Fecal Occult Blood Test 1997 Sigmoidoscopy 1997 Zoster Vaccines (2 of 3) 05/21/2017 03/26/2017 DTaP,Tdap,and Td Vaccines (2 - Td or Tdap) 09/25/2017 09/26/2007 Pneumococcal Vaccine: 65+ Years (2 of 2 - PCV) 02/07/2022 02/07/2021 Adult Wellness Visit 07/17/2022 07/17/2021, 07/09/19 21 Depression Screening 07/17/2022 07/17/2021 COVID-19 Vaccine ( season) 2022 Influenza Vaccine (FLU shot) (#1) 2023 GFR 04/24/2024 04/24/2023, 09/20, 05/04/2022, Additional history exists Albumin/Creatinine Ratio 03/23/2025 03/23/2022 Colonoscopy 02/26/2028 02/25/2023, 09/2022, 07/30/2017, Additional history exists Colorectal Cancer Screening 02/26/2028 Lipid Panel 04/24/2028 04/24/2023, 05/2021, 06/03/2020, Additional history exists RETIRED - COLONOSCOPY-EVERY 5 YRS AGES 18-100 Discontinued 02/25/2023, 02/25/2023, 07/30/2017, Additional history exists AAA Screening Completed 04/26/2023, 05/23, 02/27/2016, Additional history exists HPV (Gardasil) Vaccine Aged Out No lo nger eligible based on patient's age to complete this topic Hepatitis B Vaccine Aged Out No longe r eligible based on patient's age to complete this topic MENINGOCOCCAL (MENACTRA/MENVEO) Aged Out No longer eligible based on patient's age to complete this topic documented as of this encounter Medical Devices Not on filedocumented as of this encounter Visit Diagnoses Diagnosis Erythema migrans (Lyme disease)- Primary Lyme disease documented in this encounter Advance Directives * Full Code (Latest Code Status on File) Date Activated Date Inactivated Comments 07/29/2018 6:53 PM 07/31/2018 5:48 PM Question Answer Comments Discussion of Advance Directives occurred with: Not Discussed Care Teams Channel Manager Relationship Specialty Start Date End Date Tova Nguyen DO [address] [place] [address] [place] [phone] PCP - General Internal Medicine 12/29/15 documented as of this encounter
--- OUTSIDE RECORDS SUMMARY | 2023-12-03 22:24 | External Medical Summary | Summary of Care ---
Author Name Unknown Organization [facility] Address [address] [place] [address] Phone [phone] Care Team Providers Care Bike Technician Name Role Phone Tova Nguyen Primary Care Provider Encounter Details Date Type Department Care Team (Late st Contact Info) Description 08/20/2023 3:45 PM EDT Telemedicine Urology, [facility] [address] [facility] [place] [address] Ryan Del Rio MD 27 [facility] [address] [place] [address] Prostate cancer (HCC)*; Cancer of right kidney (HCC); Malignant neoplasm of right kidney (HCC); Weak urinary stream Allergies Active Allergy Reactions Criticality Noted Date Comments Pollen 11/04/2001 documented as of this encounter (statuses as of 08/20/2023) Medications Medication Sig Dispensed Refills Start Date End Date Status Acetaminophen 500 MG Oral Tablet Take 1 Tablet by mouth every 6 hours as needed for Pain. 0 Active Vitamin D3 25 MCG (1000 UT) Oral Capsule Take by mouth daily. 0 Active amLODIPine Besylate 5 MG Oral Tablet (Norvasc)Indications:E ssential hypertension with goal blood pressure less than 140/90 Take 1 Tablet by mouth in the morning. 90 Tablet 1 04/26/2023 Active B-12 50 MCG Oral Tablet Take by mouth. 0 Active Atorvastatin Calcium 20 MG Oral Tablet (Lipitor)Indications:H yperlipidemia with target LDL less than 100 Take 1 Tablet by mouth every night at bedtime. 90 Tablet 3 06/03/2023 Active Losartan Potassium 100 MG Oral Tablet (Cozaar)Indications:Es sential hypertension with goal blood pressure less than 140/90 Take 1 Tablet by mouth in the morning. 90 Tablet 3 06/03/2023 Active documented as of this encounter (statuses as of 08/20/2023) Active Problems Problem Noted Date Diagnosed Date [...] as of this encounter (statuses as of 08/20/2023) Resolved Problems Problem Noted Date Diagnosed Date Resolved Date Hematuria, gross 04/24/2018 07/08/2020 Renal mass, right 12/29/2015 08/24/2018 Generalized anxiety disorder 08/18/2010 12/29/2015 Dyslipidemia, goal to be determined 03/29/2009 08/10/2011 Overview: Per Lipid Taxonomy. Chronic prostatitis 05/19/2007 07/30/19 20 ABN LIVER FUNCTION STUDY 03/25/200709/2015 Gastritis and gastroduodenitis 03/21/2007 07/08/2020 Feces contents abnormal 03/21/2007 09/0 11/2015 IRON DEFIC ANEMIA NOS 03/20/20072015 Swelling, [...] as of this encounter (statuses as of 08/20/2023) Immunizations Name Administration Dates Next Due Pneumococcal Polysaccharide PPV23 (Pneumovax) TDAP (age 11 and older)(Adacel) 09/26/2007 Varicella Zoster Vaccine (Adult) 03/26/2017 documented [...] No 07/29/2018 documented as of this encounter Progress Notes * Ryan Del Rio MD - 08/20/2023 1:13 PM EDT After connecting to the patient via telephone, the patient was identified by name and date of . Patient was then informed that this was a telephone call only visit. The patient agreed to participate. Visit Disposition: Routine follow-up Total call duration was 5 minutes. 72-year-old male here for phone visit to review his CT results. Patient notes his previous symptomsof respiratory bother/bronchitis have resolved. CT demonstrates resolution of his previous lesions suggesting inflammation. Patient is scheduled for follow-up of his prostate and renal cell carcinomaas well as his BPH in April of 2024. Will see at that time as scheduled. Contact us sooner with any deterioration. Patient remains off of finasteride. CT chest Jul 2023: IMPRESSION Resolution of prior right lower lobe opacity Peyronie's disease: Started summer. Able to be sexually active without excess pain. Renal cell carcinoma: Status post open partial nephrectomy by Dr. Muñoz in July 2018. BPH: Patient is being seen for BPH today. He has had the following symptoms: no bothersome voiding symptoms. Severity is mild. He is now on no medication, previously on finasteride. Stopped due to ED. He has previously had TURP x 2, last in 2019 done. Problem has been present for years. Problem is stable. Prostate cancer: Diagnosed at the time of TURP in 2019, Magaly 3 + 3 in 2% of specimen. documented in this encounter Plan of Treatment Upcoming Encounters Date Type Department Care Team (Late st Contact Info) Description 04/20/2024 2:45 PM EST Imaging Radiology [address] [place] [id number] 04/28/2024 3:10 PM EST Office Visit Family Medicine [address] [place] [phone] [place] [address] 05/06/2024 3:15 PM EST Office Visit Urology, [facility] [address] [facility] [place] [address] Ryan Del Rio MD [address] [place] [address] [address] [place] [address] Scheduled Procedures Name Priority Associated Diagnoses Date/Ti [...] ( season) 2022 Influenza Vaccine (FLU shot) (Season Ended) 2023 GFR 04/24/2024 04/24/2023, 09/20, 05/04/2022, Additional history exists Albumin/Creatinine Ratio 03/23/2025 03/23/2022 Colonoscopy 02/26/2028 02/25/2023, 1109/2022, 07/30/2017, Additional history exists Colorectal Cancer Screening 02/26/2028 Lipid Panel 04/24/2028 04/24/2023, 12/0 05/2021, 06/03/2020, Additional history exists AAA Screening [...] as of this encounter Visit Diagnoses Diagnosis Prostate cancer (HCC)- Primary Malignant neoplasm of prostate Cancer of right kidney (HCC) Malignant neoplasm of right kidney (HCC) Weak urinary stream Slowing of urinary stream documented in this encounter Advance Directives Latest Code Status on File Code Status Date Activated Date Inactivated Comments Full Code 07/29/2018 6:53 PM 07/31/2018 5:48 PM Question Answer Comments Discussion of Advance Direct nils occurred with: Not Discussed Care Teams Bike Technician Relationship Specialty Start Date End Date Tova Nguyen DO [address] [place] [address] [place] [address] PCP - General Internal Medicine 12/29/15 documented as of this encounter
--- OUTSIDE RECORDS SUMMARY | 2023-12-03 22:24 | External Medical Summary | Summary of Care ---
Author Name Unknown Organization [facility] Address [address] [place] [address] Phone [phone] Care Team Providers Care Chairman & Ceo Name Role Phone Tova Nguyen DO Primary Care Provider Reason for Visit * Reason Onset Date Comments Advice 11/22/2023 Tick bit Encounter Details Date Type Department Care Team (Late st Contact Info) Description 11/22/2023 Telephone Family Medicine [address] [phone] Tova Nguyen [address] [address] Advice (Tick bit) Allergies Active Allergy Reactions Criticality Noted Date Comments Pollen 11/04/2001 documented as of this encounter (statuses as of 11/22/2023) Medications Medication Sig Dispensed Refills Start Date [...] the morning. 90 Tablet 3 10/07/2023 Active documented as of this encounter (statuses as of 11/22/2023) Active Problems Problem Noted Date Diagnosed Date [...] as of this encounter (statuses as of 11/22/2023) Resolved Problems Problem Noted Date Diagnosed Date [...] as of this encounter (statuses as of 11/22/2023) Immunizations Name Administration Dates Next Due Pneumococcal [...] encounter Miscellaneous Notes * Telephone Encounter - Elaine Blake LPN - 11/22/2023 3:01 PM EDT Patient is calling regarding the following?: Bite- Insect Bite // Possible Tick bite When: 11/15 - present intermittent Location on body: Left [place] Type of insect: Unknown Symptoms started 6 day(s) ago -- itch Doesn't recall a tick bite, but noticed a "bulls eye" - dime size. Swelling. Warm to touch? "I think it is" What have you done or taken for this problem? NA Intermittent lightheadedness X 3 days. Staying well hydrated. Denies changes in his chronic pain or stiffness, fever, or chills. No openings today, telemeds tomorrow - in person appt most appropriate. Aware of local walk in clinics if needed sooner. Scheduled 11/24 320p with Rebekah. * Telephone Encounter - Nina Holder OSA - 11/22/2023 2:58 PM EDT Reason for patient's call: Pt is calling because he thinks he has a tick bit on his left mad[place], red bullseye shane Caller was transferred to Elaine at the nurse line. documented in this encounter Plan of Treatment Upcoming Encounters Date Type Department Care Team (Late st Contact Info) Description 11/25/2023 3:20 PM EDT Office Visit Family Medicine [address] [place] [phone] Rebekah Briggs [address] [place] [address] 04/20/2024 2:45 PM EST Imaging Radiology [address] [place] [address] 04/28/2024 3:10 PM EST Office Visit Family Medicine [address] [place] [phone] [address] [place] [address] 05/06/2024 3:15 PM EST Office Visit Urology, [facility] [address] [facility] [place] [address] Ryan Del Rio MD 27 [facility] [place] [address] Scheduled Procedures Name Priority Associated Diagnoses Date/Ti [...] 02/07/2021 Depression Screening 07/17/2022 07/17/2021 COVID-19 Vaccine (1 - 2022- season) 2022 Influenza Vaccine (FLU shot) (#1) 2023 GFR 04/24/2024 04/24/2023, 09/20, 05/04/2022, Additional history exists Albumin/Creatinine Ratio 03/23/2025 03/23/2022 Colonoscopy 02/26/2028 02/25/2023, 09/2022, 07/30/2017, Additional history exists Colorectal Cancer Screening 02/26/2028 Lipid Panel 04/24/2028 04/24/2023, 1205/2021, 06/03/2020, Additional history exists RETIRED - COLONOSCOPY-EVERY [...] Not on filedocumented as of this encounter Advance Directives * Full Code (Latest Code Status on File) Date Activated Date Inactivated Comments 07/29/2018 6:53 PM 07/31/2018 5:48 PM Question Answer Comments Discussion of Advance Directives occurred with: Not Discussed Care Teams Chairman & Ceo Relationship Specialty Start Date End Date Tova Nguyen DO [address] [place] [address] [place] [phone] PCP - General Internal Medicine 12/29/15 documented as of this encounter
--- OUTSIDE RECORDS SUMMARY | 2023-12-03 22:24 | External Medical Summary | Summary of Care ---
Author Name Unknown Organization [facility] Address [address] [place] [address] Phone [phone] Care Team Providers Care Payroll Benefits Clerk Name Role Phone Tova Nguyen Primary Care Provider [phone] Reason for Visit * Reason Comments eRx-Medication Refill Encounter Details Date Type Department Care Team (Late st Contact Info) Description 06/09/2023 Refill Family Medicine [address] [phone] Brittney Saavedra PA-C [address] [place] [address] [place] [address] Bronchitis, complicated Allergies Active Allergy Reactions Criticality Noted Date Comments Pollen 11/04/2001 documented as of this encounter (statuses as of 06/10/2023) Medications Medication Sig Dispensed Refills Start Date [...] as of this encounter (statuses as of 06/10/2023) Active Problems Problem Noted Date Diagnosed Date [...] as of this encounter (statuses as of 06/10/2023) Resolved Problems Problem Noted Date Diagnosed Date [...] as of this encounter (statuses as of 06/10/2023) Immunizations Name Administration Dates Next Due Pneumococcal [...] (15 years old or older) No 07/30/19 Cognitive Status Response Date of Assessm ent Because of a physical, menta l, or emotional condition, do you have serious difficulty concentrating, remembering, or making decisions? (5 years old or older) No 07/29/2018 documented as of this encounter Miscellaneous Notes * Telephone Encounter - Joan Laboy ministerio - 06/10/2023 11:24 AM EST Refused Prescriptions: Disp Refills Doxycycline Hyclate 100 MG Oral Capsule 20 Cap*0 Sig: Take 1 Capsule by mouth in the morning and 1 Capsule before bedtime. Do all this for 10 days. Until gone..Refused By: JOAN LABOY for Refusal: Course of treatment complete documented in this encounter Plan of Treatment Upcoming Encounters Date Type Department Care Team (Late st Contact Info) Description 08/07/2023 4:30 PM EDT Imaging Radiology [facility] [address] [facility] [place] [address] 08/20/2023 3:45 PM EDT Telemedicine Urology, [facility] 132 [facility] [place] [address] Ryan Del Rio MD 27 [facility] [address] [place] [address] 09/04/2023 1:00 PM EDT Office Visit Dermatology [address] [place] [address] Nina Mccall PA-C [address] [place] [address] [place] [address] 04/20/2024 3:00 PM EST Imaging Radiology [address] [place] [address] 04/28/2024 3:10 PM EST Office Visit Family Medicine [address] [place] [phone] Tova [address] [place] [address] 05/06/2024 3:15 PM EST Office Visit Urology, [facility] 132 [facility] [place] [address] Ryan Del Rio MD 27 [facility] [place] [address] [place] [address] Scheduled Procedures Name Priority Associated Diagnoses Date/Ti me COLONOSCOPY FLEXIBLE PROXIMA L DIAGNOSTIC Recall History of colonic polyps Health Maintenance Due Date Last Done Comments Zoster Vaccines (2 of 3) 05/21/2017 03/26/2017 DTaP,Tdap,and Td Vaccines (2 - Td or Tdap) 09/25/2017 09/26/2007 Pneumococcal Vaccine: 65+ Years (2 of 2 - PCV) 02/07/2022 02/07/2021 Depression Screening 07/17/2022 07/17/2021 COVID-19 Vaccine ( - 2022- season) 2022 Influenza Vaccine (FLU shot) (#1) 2022 GFR 04/24/2024 04/24/2023, 09/20, 05/04/2022, Additional history exists Albumin/Creatinine Ratio 03/23/2025 03/23/2022 COLONOSCOPY-EVERY 5 YRS AGES 18-100 02/26/2028 02/25/2023, 02/25/2023, 07/30/2017, Additional history exists Lipid Panel 04/24/2028 04/24/2023, 12/0 05/2021, 06/03/2020, Additional history exists AAA Screening Completed 06/04/2022, 12/23/2007 GARDASIL-HPV IMMUNIZATION SERIES Aged Out No longer [...] as of this encounter Visit Diagnoses Diagnosis Bronchitis, complicated Bronchitis, not specified as acute or chronic documented in this encounter Advance Directives Latest Code Status on File Code Status Date Activated Date Inactivated Comments Full Code 07/29/2018 6:53 PM 07/31/2018 5:48 PM Question Answer Comments Discussion of Advance Direct nils occurred with: Not Discussed Care Teams Payroll Benefits Clerk Relationship Specialty Start Date End Date Tova Nguyen DO [address] [place] [address] [place] [address] PCP - General Internal Medicine 12/29/15 documented as of this encounter
[2023-12-03] MEDS: DOXYCYCLINE HYCLATE 100 MG CAP PO STA (22:27)
[2023-12-03] MEDS ORDERED: HYDROmorphone INJ 0.5 MG/0.5 ML SYR IV PRN ×2 (23:00)
[2023-12-03] MEDS ORDERED: ONDANSETRON INJ 2 MG/ML 2 ML VIAL IV PRN (23:00)
[2023-12-03] MEDS ORDERED: ACETAMINOPHEN 1,000 MG/100 ML VIAL IV PRN (23:00)
[2023-12-03] MEDS: D5W AND 1/2NSS 1,000 ML IV SCH (23:47)
[2023-12-03] MEDS: ENOXAPARIN INJ 40 MG/0.4 ML SYR SQ SCH (23:55)
[2023-12-04 07:29] LABS: Basophils # (auto) 0.05 K/uL (0.00-0.20); Basophils % (auto) 0.7 %; Eosinophils % (auto) 2.7 %; Hematocrit (blood only) 39.3 % (42.0-52.0); Hemoglobin 13.2 g/dl (14.0-18.0); Immature Granulocytes # (auto) 0.04 K/uL (0.01-0.20); Immature Granulocytes % (auto) 0.5 %; Lymphocytes # (auto) 0.97 K/uL (1.20-3.40); Lymphocytes % (auto) 13.2 %; Mean Corpuscular Hemoglobin 28.9 pg (25.0-34.0); Mean Corpuscular Hgb Conc 33.6 g/dL (32.0-36.0); Mean Platelet Volume 11.4 fL (9.4-12.4); Monocytes # (auto) 0.67 K/uL (0.11-0.59); Monocytes % (auto) 9.1 %; Neutrophils # (auto) 5.44 K/uL (1.40-6.50); Neutrophils % (auto) 73.8 %; Platelet Count 118 K/uL (130-400); RDW Coefficient of Variation 13.7 % (11.5-14.5); RDW Standard Deviation 42.7 fL (36.4-46.3); Red Blood Count 4.57 M/uL (4.70-6.10); White Blood Count 7.37 K/ul (4.8-10.8)
[2023-12-04 07:38] LABS: BUN Creatinine Ratio 23.4 (10-20); Calcium 8.5 mg/dl (8.6-10.3); Creatinine Clr Calc Pharmacy 84.8 ml/min; Est GFR (African American) 94.8 ml/min; Est GFR (Non-African American) 81.8 ml/min; Potassium 3.6 mmol/L (3.5-5.1)
--- NOTE | 2023-12-04 08:29 | XRay Report ---
KUB HISTORY: Small bowel obstruction. COMPARISON: Abdomen and pelvis CT 12/03/2023. FINDINGS: Prior prostatectomy. Redemonstration of the multiple dilated loops of small bowel within th e abdomen. There is gas and stool remaining within the nondistended colon. The small bowel loops matthew ure up to 4.7 cm in diameter. Prior cholecystectomy. No acute fractures. No renal calculi. No ureter al calculi. No pneumoperitoneum or pneumatosis. IMPRESSION: No significant change in the dilated loops of small bowel which may represent a partial small bowel o bstruction or ileus. ACT 112: Negative or not required by law. Electronically signed by: Kilo Saleem M.D. 12/04/2023 8:27 AM
[2023-12-04] MEDS: amLODIPine BESYLATE 5 MG TAB PO SCH (08:35)
[2023-12-04] MEDS: DOXYCYCLINE HYCLATE 100 MG CAP PO SCH (08:42)
--- NOTE | 2023-12-04 08:49 | Surgery Consultation ---
Date of Consultation December 04, 2023 Assessment & Plan (1) Ileus: resolving, feels better passing flatus begin diet, advance as tolerated ambulate History of Present Illness Attending Physician: Jayme Padilla MD History of Present Illness This is a 72-year-old male with past medical history significant for right renal cell carcinoma status post partial nephrectomy admitted with abdominal pain and associated nausea/vomiting. A CT scan shows likely ileus. His pain began last night in upper abdomen radiating to the left lower quadrant. Last bowel movement was yesterday, currently passing flatus. Recently had a tick bite and is on doxycycline. 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), 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 Hemorrhoids Hypertension History of kidney cancer Surgical History History of partial nephrectomy History of cholecystectomy Hx of transurethral resection of prostate History of hernia repair H/O hemorrhoidectomy Family History Father Cancer Hypertension Other Allergies Hearing loss No family history of adverse response to anesthesia No family history of bleeding disorder Social History Smoking Status: Former smoker Age Quit Using Tobacco: 26; packs per day: 4; Hx Alcohol Use: No Hx Substance Use: No Preferred Language: Lithuanian Communication Ability: Effective [employer] Required: No Beliefs That Will Affect Care: None Current Living Situation: Spouse Feels Safe at Home: Yes Safety Concerns: Feels Safe At This Time Assistive Devices: Glasses Review of Systems Constitutional: no fever, no chills and no anorexia Eyes: no problem reported Ear, Nose, Mouth, Throat: no problem reported Respiratory: no cough and no dyspnea Cardiovascular: no chest pain Gastrointestinal: no abdominal pain, no nausea, no vomiting and no change in bowel habits Genitourinary: no dysuria Integumentary: no problem reported Neurologic: no localized weakness and no generalized weakness Psychiatric: no behavioral changes Endocrine: no fatigue Hematologic / Lymphatic: no easy bleeding and no easy bruising Physical Exam Constitutional: WD/WN, vitals as above Eyes: PERRL, conjunctivae normal, anicteric sclerae ENMT: external ear and nose normal, oropharynx normal Neck: trachea midline Respiratory: normal respiratory effort, lungs clear to auscultation Cardiovascular: RRR, no murmur, no edema Gastrointestinal (Abdomen): Inspection/Auscultation: abdomen normal to inspection and normal bowel sounds; abdomen not distended Percussion/Palpation: abdomen soft; abdomen nontender, no guarding and abdomen not rigid Musculoskeletal: Head/Neck/Chest: normocephalic and head atraumatic Skin: no rashes, warm and dry Results & Data Vital Signs (Past 12 Hours) Vital Signs Temp Pulse Pulse Resp BP BP Pulse Ox 12/04/23 07:21 36.6 C 68 18 113/70 96 12/03/23 22:50 36.3 C L 95 H 16 136/88 97 12/03/23 22:36 93 H 15 139/93 96 12/03/23 22:06 98 H 21 95 12/03/23 22:00 126/100 12/03/23 21:00 110 H 15 123/83 95 O2 Del Method 12/04/23 07:21 Room Air 12/03/23 22:50 Room Air 12/03/23 22:36 Room Air 12/03/23 22:06 Room Air 12/03/23 22:00 12/03/23 21:00 Room Air Diagnostic Findings CT abd pelvis IV con only CLINICAL HISTORY: UPPER ABD PAIN, N/V TECHNIQUE: Helical axial images of the abdomen and pelvis were obtained and displayed. Automated dose lowering techniques and/or adjustment according to patient size were utilized for this exam. This exam was performed with intravenous contrast. CT DOSE: 1455.27 mGy.cm COMPARISON: Comparison is made to CT abdomen pelvis 12/09/2022 FINDINGS: Lower chest: Bibasilar atelectasis versus scarring is seen. Liver: Hepatic cysts are seen. Gallbladder and biliary tree: Patient is status post cholecystectomy. No intra- or extrahepatic biliary ductal dilation. Pancreas: Unremarkable, no focal lesions. Spleen: Unremarkable. Adrenals: Unremarkable. Kidneys and ureters: Renal cysts are seen. Postsurgical changes of partial nephrectomy are seen on the right. Bladder: Limited evaluation due to underdistention. Reproductive organs: Unremarkable. Bowel: Diverticulosis is seen without evidence of diverticulitis. Multiple dilated loops of small bowel measure up to 36 m. No sharp transition point is seen. Lymph nodes Retroperitoneal: Unremarkable. Pelvic: Unremarkable. Mesenteric: Unremarkable. Peritoneum: A small amount of abdominal and pelvic fluid is seen. Vessels: Unremarkable. Abdominal wall: Bilateral fat-containing inguinal hernias are seen. Bones: Degenerative changes in the visualized spine. IMPRESSION: 1. Multiple loops of dilated small bowel without sharp transition point. This may represent a low-grade obstruction or ileus. Postsurgical changes of partial nephrectomy of the right kidney. 2. Additional findings as above.
--- NOTE | 2023-12-04 16:34 | Hospitalist Progress Note ---
Date of Service December 04, 2023 Assessment & Plan (1) Partial small bowel obstruction: Plan: 72-year-old male with past medical history significant for hyperlipidemia, hypertension, right renal cell carcinoma status post partial nephrectomy, history of prostate cancer, BPH, Peyronie's disease, anxiety presents with abdominal pain and found to have small bowel obstruction. Patient states since 7 PM last night he has abdominal pain. Pain located in upper abdomen radiating to the left lower quadrant. Whole last night he had pain but since morning the pain is coming and going. Pain is severe in nature. Associated with nausea and several emesis. No blood in the vomiting. Last bowel movement was today morning. Denies any headache. Has chronic runny nose. No sore throat. No cough. No difficulty swallowing. Complains of dry mouth. Currently resting comfortably and hemodynamically stable.Recently had a tick bite and on doxycycline. Partial small bowel obstruction Presented with abdominal pain CT scan showing low-grade obstruction or ileus No history of bowel obstruction in the past N.p.o., IV fluids, IV pain meds as needed IV antiemetics as needed If worsening will place him on NG tube KUB in a.m.-dilated small bowel loops without any significant obstruction as I ileus Appreciate surgery input and recommendation Abdominal distention has improved and does not have any pain, nausea and or vomiting Has been tolerating liquid diet and will advance as tolerated Likely discharge tomorrow if he can tolerate regular diet without any symptoms History of hypertension On amlodipine and losartan Will monitor Hyperlipidemia On statin History of BPH Status post TURP History of prostate cancer Diagnosed during TURP Currently under active surveillance History of right renal cell carcinoma Status post partial nephrectomy Recent tick bite Doxycycline DVT prophylaxis Lovenox Disposition Medical floor Full code. Admission and Anticipated Discharge Date Admission Date: December 03, 2023 Subjective 12/04/2023 The patient was seen and examined in medical floor He has been feeling much better and the distention and discomfort in the abdomen have improved Has not had any bowel movement but passing gas He has been ambulating in the hallway and has been tolerating clears ordered Review of Systems Review of Systems: All systems reviewed and are unremarkable except as noted below Physical Exam Physical Exam: Lying in bed without any acute distress Constitutional: well developed, well nourished and average body habitus; not ill appearing Eyes: PERRL, conjunctivae normal, anicteric sclerae ENMT: external ear and nose normal, oropharynx normal Neck: trachea midline, no thyromegaly Respiratory: no respiratory distress Auscultation: lungs clear to auscultation bilaterally Cardiovascular: Rate/Rhythm: regular rate and regular rhythm; not tachycardic Heart Sounds: normal S1 and normal S2; no murmur Extremities: no edema Gastrointestinal (Abdomen): Inspection/Auscultation: normal bowel sounds; abdomen not distended Percussion/Palpation: abdomen soft; abdomen nontender Musculoskeletal: No acute arthritis involving any of the joints normal Neurologic: normal touch/pain/proprioception and moves all extremities; no focal motor deficits Psychiatric: A+Ox3, euthymic affect Lymphatic: no cervical or axillary lymphadenopathy Results & Data Results & Data Vital Signs (Past 12 Hours) Vital Signs Temp Pulse Resp BP Pulse Ox O2 Del Method 12/04/23 15:15 36.5 C 65 18 128/81 97 Room Air 12/04/23 07:21 36.6 C 68 18 113/70 96 Room Air Laboratory Results Short CBC 12/04/23 Range/Units 05:57 WBC 7.37 (4.8-10.8) K/ul Hgb 13.2 L D (14.0-18.0) g/dl Hct 39.3 L (42.0-52.0) % Plt Count 118 L (130-400) K/uL BMP 12/04/23 05:57 Sodium 140 Potassium 3.6 Chloride 109 H Carbon Dioxide 27 BUN 22 Creatinine 0.94 Glucose 114 H Calcium 8.5 L Urine 12/03/23 Range/Units 17:00 Urine Color Dark Yellow Urine Appearance Clear (Clear) Urine pH 6.0 (4.5-7.5) Ur Specific [place] 1.024 (1.000-1.030) Urine Protein 1+ H (Negative) Urine Glucose (UA) Negative (Negative) Medications Administered Current Inpatient Medications Amlodipine Besylate (Amlodipine Besylate 5 Mg Tab) 5 mg PO QAM ANJELICA Stop: 01/03/24 08:59 Last Admin: 12/04/23 08:35 Dose: 5 mg Atorvastatin Calcium (Atorvastatin 20 Mg Tab) 20 mg PO HS ANJELICA Stop: 01/03/24 20:59 Doxycycline Hyclate (Doxycycline Hyclate 100 Mg Cap) 100 mg PO BID ANJELICA Stop: 12/14/23 08:59 Last Admin: 12/04/23 08:42 Dose: 100 mg Enoxaparin Sodium (Enoxaparin Inj 40 Mg/0.4 Ml Syr) 40 mg SQ Q24H [facility] Stop: 01/02/24 22:59 Last Admin: 12/03/23 23:55 Dose: 40 mg Hydromorphone HCl (Hydromorphone Inj 0.5 Mg/0.5 Ml Syr) 0.25 mg IV Q4H PRN PRN Reason: Moderate Pain (Scale 4, 5, 6) Stop: 12/17/23 22:59 Hydromorphone HCl (Hydromorphone Inj 0.5 Mg/0.5 Ml Syr) 0.5 mg IV Q4H PRN PRN Reason: Severe Pain (Scale 7, 8, 9,10) Stop: 12/17/23 22:59 Acetaminophen (Ofirmev) 1,000 mg in 100 mls @ 400 mls/hr IV Q8H PRN PRN Reason: Pain or Fever Stop: 12/06/23 22:59 Losartan Potassium (Losartan Potassium 50 Mg Tab) 100 mg PO HS [facility] Stop: 01/03/24 20:59 Ondansetron HCl (Ondansetron Inj 2 Mg/Ml 2 Ml Vial) 4 mg IV Q6H PRN PRN Reason: Nausea Stop: 01/02/24 22:59
[2023-12-04 20:20] VITALS: RESP 16
[2023-12-04] MEDS: LOSARTAN POTASSIUM 50 MG TAB PO SCH (20:21)
[2023-12-04] MEDS: ATORVASTATIN 20 MG TAB PO SCH (20:21)
[2023-12-05 06:56] VITALS: BP 128/78; PULSE 60; TEMP 97.5; O2SAT 94
[2023-12-05 07:27] LABS: Calcium 8.6 mg/dl (8.6-10.3); Creatinine Clr Calc Pharmacy 87.6 ml/min; Est GFR (African American) 98.6 ml/min; Est GFR (Non-African American) 85.1 ml/min; Magnesium 1.8 mg/dl (1.7-2.4); Phosphorus 2.1 mg/dl (2.5-4.9); Potassium 3.5 mmol/L (3.5-5.1)
[2023-12-05] MEDS ORDERED: POTASSIUM PHOS 3 MMOL/1 ML INFUSION IV STA (08:16)
[2023-12-05] MEDS: POTASSIUM PHOSPHATE 15 MMOL in SODIUM CHLORIDE 0.9% 250 ML IV ONE (09:33)
--- NOTE | 2023-12-05 10:14 | Surgery Progress Note ---
Date of Service December 05, 2023 Assessment & Plan (1) Ileus: Plan: resolved discharge per medical team will sign off Admission and Anticipated Discharge Date Admission Date: December 03, 2023 Subjective passing BMs taking regular diet no abdominal pain Review of Systems Constitutional: no fever and no chills Respiratory: no cough and no dyspnea Cardiovascular: no chest pain Gastrointestinal: no abdominal pain, no nausea, no vomiting and no change in bowel habits Genitourinary: no dysuria Neurologic: no localized weakness and no generalized weakness Psychiatric: no behavioral changes Hematologic / Lymphatic: no easy bleeding and no easy bruising Physical Exam Constitutional: WD/WN, vitals as above Neck: trachea midline Respiratory: normal respiratory effort Cardiovascular: Rate/Rhythm: regular rate Gastrointestinal (Abdomen): Inspection/Auscultation: abdomen normal to inspection and normal bowel sounds; abdomen not distended Percussion/Palpation: abdomen soft; abdomen nontender, no guarding and abdomen not rigid Musculoskeletal: Head/Neck/Chest: normocephalic and head atraumatic Skin: no rashes, warm and dry Results & Data Vital Signs (Past 12 Hours) Vital Signs Temp Pulse Resp BP Pulse Ox O2 Del Method 12/05/23 06:56 36.4 C L 60 16 128/78 94 Room Air
--- NOTE | 2023-12-05 12:43 | Hospitalist Progress Note ---
Date of Service December 05, 2023 Assessment & Plan (1) Partial small bowel obstruction: Plan: 72-year-old male with past medical history significant for hyperlipidemia, hypertension, right renal cell carcinoma status post partial nephrectomy, history of prostate cancer, BPH, Peyronie's disease, anxiety presents with abdominal pain and found to have small bowel obstruction. Patient states since 7 PM last night he has abdominal pain. Pain located in upper abdomen radiating to the left lower quadrant. Whole last night he had pain but since morning the pain is coming and going. Pain is severe in nature. Associated with nausea and several emesis. No blood in the vomiting. Last bowel movement was today morning. Denies any headache. Has chronic runny nose. No sore throat. No cough. No difficulty swallowing. Complains of dry mouth. Currently resting comfortably and hemodynamically stable.Recently had a tick bite and on doxycycline. Partial small bowel obstruction Presented with abdominal pain CT scan showing low-grade obstruction or ileus No history of bowel obstruction in the past N.p.o., IV fluids, IV pain meds as needed IV antiemetics as needed If worsening will place him on NG tube KUB in a.m.-dilated small bowel loops without any significant obstruction as I ileus Appreciate surgery input and recommendation Abdominal distention has improved and does not have any pain, nausea and or vomiting Has been tolerating liquid diet and will advance as tolerated Has been tolerating regular diet without any abdominal discomfort or pain and has been moving bowels Cleared by surgery and will sign up to go home Remains medically stable with unremarkable labs and he will be discharged home this afternoon History of hypertension On amlodipine and losartan Will monitor Hyperlipidemia On statin History of BPH Status post TURP History of prostate cancer Diagnosed during TURP Currently under active surveillance History of right renal cell carcinoma Status post partial nephrectomy Recent tick bite Doxycycline DVT prophylaxis Lovenox Disposition Medical floor Full code. Admission and Anticipated Discharge Date Admission Date: December 03, 2023 Subjective 12/04/2023 The patient was seen and examined in medical floor He has been feeling much better and the distention and discomfort in the abdomen have improved Has not had any bowel movement but passing gas He has been ambulating in the hallway and has been tolerating clears ordered 12/05/2023 The patient was seen and examined in medical floor He has been feeling much better and tolerating regular diet Has been having regular bowel movement He has been ambulating without difficulties He will be discharged home this afternoon Review of Systems Review of Systems: All systems reviewed and are unremarkable except as noted below Physical Exam Physical Exam: Lying in bed without any acute distress Constitutional: well developed, well nourished and average body habitus; not ill appearing Eyes: PERRL, conjunctivae normal, anicteric sclerae ENMT: external ear and nose normal, oropharynx normal Neck: trachea midline, no thyromegaly Respiratory: no respiratory distress Auscultation: lungs clear to auscultation bilaterally Cardiovascular: Rate/Rhythm: regular rate and regular rhythm; not tachycardic Heart Sounds: normal S1 and normal S2; no murmur Extremities: no edema Gastrointestinal (Abdomen): Inspection/Auscultation: normal bowel sounds; abdomen not distended Percussion/Palpation: abdomen soft; abdomen nontender Neurologic: normal touch/pain/proprioception and moves all extremities; no focal motor deficits Psychiatric: A+Ox3, euthymic affect Lymphatic: no cervical or axillary lymphadenopathy Results & Data Results & Data Vital Signs (Past 12 Hours) Vital Signs Temp Pulse Resp BP Pulse Ox O2 Del Method 12/05/23 06:56 36.4 C L 60 16 128/78 94 Room Air Laboratory Results BMP 12/05/23 06:41 Sodium 139 Potassium 3.5 Chloride 107 Carbon Dioxide 28 BUN 20 Creatinine 0.91 Glucose 109 H Calcium 8.6 Medications Administered Current Inpatient Medications Amlodipine Besylate (Amlodipine Besylate 5 Mg Tab) 5 mg PO QAM ANJELICA Stop: 01/03/24 08:59 Last Admin: 12/05/23 09:28 Dose: 5 mg Atorvastatin Calcium (Atorvastatin 20 Mg Tab) 20 mg PO HS ANJELICA Stop: 01/03/24 20:59 Last Admin: 12/04/23 20:21 Dose: 20 mg Doxycycline Hyclate (Doxycycline Hyclate 100 Mg Cap) 100 mg PO BID ANJELICA Stop: 12/14/23 08:59 Last Admin: 12/05/23 09:28 Dose: 100 mg Enoxaparin Sodium (Enoxaparin Inj 40 Mg/0.4 Ml Syr) 40 mg SQ Q24H ANJELICA Stop: 01/02/24 22:59 Last Admin: 12/04/23 22:43 Dose: 40 mg Hydromorphone HCl (Hydromorphone Inj 0.5 Mg/0.5 Ml Syr) 0.25 mg IV Q4H PRN PRN Reason: Moderate Pain (Scale 4, 5, 6) Stop: 12/17/23 22:59 Hydromorphone HCl (Hydromorphone Inj 0.5 Mg/0.5 Ml Syr) 0.5 mg IV Q4H PRN PRN Reason: Severe Pain (Scale 7, 8, 9,10) Stop: 12/17/23 22:59 Acetaminophen (Ofirmev) 1,000 mg in 100 mls @ 400 mls/hr IV Q8H PRN PRN Reason: Pain or Fever Stop: 12/06/23 22:59 Losartan Potassium (Losartan Potassium 50 Mg Tab) 100 mg PO HS ANJELICA Stop: 01/03/24 20:59 Last Admin: 12/04/23 20:21 Dose: 100 mg Ondansetron HCl (Ondansetron Inj 2 Mg/Ml 2 Ml Vial) 4 mg IV Q6H PRN PRN Reason: Nausea Stop: 01/02/24 22:59
--- NOTE | 2023-12-05 16:55 | Discharge Summary ---
Date of Service December 05, 2023 Admission HPI Per Admitting Provider 72-year-old male with past medical history significant for hyperlipidemia, hypertension, right renal cell carcinoma status post partial nephrectomy, history of prostate cancer, BPH, Peyronie's disease, anxiety presents with abdominal pain and found to have small bowel obstruction. Patient states since 7 PM last night he has abdominal pain. Pain located in upper abdomen radiating to the left lower quadrant. Whole last night he had pain but since morning the pain is coming and going. Pain is severe in nature. Associated with nausea and several emesis. No blood in the vomiting. Last bowel movement was today morning. Denies any headache. Has chronic runny nose. No sore throat. No cough. No difficulty swallowing. Complains of dry mouth. Currently resting comfortably and hemodynamically stable.Recently had a tick bite and on doxycycline. Past medical history. As mentioned above Past surgical history. Colonoscopy. Excision of the subcutaneous tumor in the back cystoscopy. Laparoscopic cholecystectomy. Right partial nephrectomy. Removal of hydrocele. TURP. Tonsillectomy. Repair of inguinal hernia. Umbilical hernia repair. Social history. . Quit smoking 1975. Smoked 3 packs a day for 7 years. No alcohol use. No drug use. Family history. Father had colon cancer age 74. Mother had bone cancer of leg. Brother has thyroid disorder. Admission Exam Per Admitting Provider Physical Exam: General- Not in distress. Head- atraumatic Eyes- PERRL. ENT- oropharynx clear Neck- supple, no JVD. Lungs- clear to auscultation no wheezing or crackles Heart- regular rate and rhythm; no murmur, no gallop. Abdomen- very sluggish l bowel sounds, soft, diffuse discomfort, no distension. Extremities- no pretibial edema, no erythema seen Neuro- alert, oriented PERRL, EOMI; no facial palsy; no dysarthria; moves extremities Principal Diagnosis Partial small bowel obstruction-resolved, hypertension, hyperlipidemia Discharge Exam Lying in bed without any acute distress Constitutional well developed, well nourished and average body habitus; not ill appearing Eyes PERRL, conjunctivae normal, anicteric sclerae ENMT external ear and nose normal, oropharynx normal Neck trachea midline, no thyromegaly Respiratory no respiratory distress Auscultation: lungs clear to auscultation bilaterally Cardiovascular Rate/Rhythm: regular rate and regular rhythm; not tachycardic Heart Sounds: normal S1 and normal S2; no murmur Extremities: no edema Gastrointestinal (Abdomen) Inspection/Auscultation: normal bowel sounds; abdomen not distended Percussion/Palpation: abdomen soft; abdomen nontender Neurologic normal touch/pain/proprioception and moves all extremities; no focal motor deficits Psychiatric A+Ox3, euthymic affect Lymphatic no cervical or axillary lymphadenopathy Discharge Data Allergies Allergy/AdvReac Type Severity Reaction Status Date / Time pollen extracts Allergy Intermediate Congested Verified 12/03/23 19:33 No Known Drug Allergies Allergy Unknown Verified 12/03/23 19:33 Consultations 12/03/23 19:17 ED Decision to Admit Stat 12/04/23 08:00 Consult General Surgery Routine Ordered Studies 12/03/23 14:23 CT abd pelvis IV con only Stat Hospital Course (1) Partial small bowel obstruction: 72-year-old male with past medical history significant for hyperlipidemia, hypertension, right renal cell carcinoma status post partial nephrectomy, history of prostate cancer, BPH, Peyronie's disease, anxiety presents with abdominal pain and found to have small bowel obstruction. Patient states since 7 PM last night he has abdominal pain. Pain located in upper abdomen radiating to the left lower quadrant. Whole last night he had pain but since morning the pain is coming and going. Pain is severe in nature. Associated with nausea and several emesis. No blood in the vomiting. Last bowel movement was today morning. Denies any headache. Has chronic runny nose. No sore throat. No cough. No difficulty swallowing. Complains of dry mouth. Currently resting comfortably and hemodynamically stable.Recently had a tick bite and on doxycycline. Partial small bowel obstruction Presented with abdominal pain CT scan showing low-grade obstruction or ileus No history of bowel obstruction in the past N.p.o., IV fluids, IV pain meds as needed IV antiemetics as needed If worsening will place him on NG tube KUB in a.m.-dilated small bowel loops without any significant obstruction as I ileus Appreciate surgery input and recommendation Abdominal distention has improved and does not have any pain, nausea and or vomiting Has been tolerating liquid diet and will advance as tolerated Has been tolerating regular diet without any abdominal discomfort or pain and has been moving bowels Cleared by surgery and will sign up to go home Remains medically stable with unremarkable labs and he will be discharged home this afternoon History of hypertension On amlodipine and losartan Will monitor Hyperlipidemia On statin History of BPH Status post TURP History of prostate cancer Diagnosed during TURP Currently under active surveillance History of right renal cell carcinoma Status post partial nephrectomy Recent tick bite Doxycycline DVT prophylaxis Lovenox Disposition Medical floor Full code. Total Time Total Time Spent Total Time Spent (In Minutes): 35 minutes Discharge Plan Discharge Items Patient Disposition: Home - Self-Care Reason For Visit: SBO Discharge Diagnosis: Partial small bowel obstruction-resolved, hypertension, hyperlipidemia Condition on Discharge: Good Activity: Resume your previous activity Non-emergency contact: Primary Care Provider Call non-emergency contact if: you have any medication questions and your symptoms worsen Follow-up/Referrals: Tova Nguyen, [Primary Care Provider] - (Date & Time 12/12/2023 8:20 AM Provider Ian Salas MD Department Family Medicine [facility] ) Diet: Regular and Low Fiber Addtl Attending Provider Instructions: Please take precautions to avoid falls No change with your medications Try to drink more fluid Please give appointment with your healthcare providers Pending Studies at Discharge: No Stand-Alone Forms: My [facility] [employer], Smoking Cessation Medications and DC Order Prescriptions: Continued losartan [Cozaar] 100 mg tablet 100 mg PO HS atorvastatin 20 mg Tablet 20 mg PO HS amlodipine 5 mg Tablet 5 mg PO QAM doxycycline hyclate 100 mg Tablet 100 mg PO AMHS Discharge Orders: Discharge Order (Routine); Ordered 12/05/23 Ordered By: Jayme Padilla Admission Data Admit Date/Time: 12/03/23 21:19 Attending Provider: Jayme Padilla Admit Provider: Seymour Gonzalez Primary Care Provider: Tova Nguyen Other Providers: Seymour Gonzalez; Evelyn Penaloza; Samuel Barnett Other Interventions: Discharge Summary Assessment (RN) Last Done: 12/05/23 12:51
--- NOTE | 2023-12-06 11:01 | Coding Query ---
CODING QUERY To promote full compliance with coding requirements relating to patient care, provider participation is requested in all cases of kettle loader uncertainty. Please assist us with the question(s) below: Clinical Indicators: Emergency Department Note: * patient is on day 5 of a 10-day course of doxycycline for possible tick bite History and Physical: * Recently had a tick bite and on doxycycline Coding Question(s): Are you able to specify the infection being treated with doxycycline? ( ) Anaplasmosis ( ) Lyme Disease ( ) Babesiosis ( ) Bacterial infection, unspecified ( ) Unspecified protozoal disease ( ) Other (please specify): ( x) Unable to determine - Documents doesn't show patient was seen by me. Physician's Response(s): Unable to determine Thank you Sammi Urena Principal Diagnosis: "that condition established after study, to be chiefly responsible for occasioning the admission of the patient to the hospital for care." Co-Existing Principal Diagnosis: "when two or more diagnoses equally meet the criteria for principal diagnosis as determined by the circumstances of admission, diagnostic work up, and/or therapy provided, and the Alphabetic Index, Tabular List, or another coding guideline does not provide sequencing direction, any one of the diagnoses may be sequenced first." "When the physician has documented what appears to be a current diagnosis in the body of the record, but has not included the diagnosis in the final diagnostic statement, the physician should be asked whether the diagnosis should be added." (Source Coding Clinic 2 QTR90. p3-4) KARLA
== END 2023-12-05 15:22 | disposition home or self-care (01) | DRG 390 ==
LOC: ED 13:58 → 3N 21:19 → SUATTDRO 21:19 → 3N 22:36